=== PATIENT | male | born 1930 | race Caucasian/White ===

== ENCOUNTER 2018-03-24 11:21 | Inpatient (IN) ==
[2018-03-24] MEDS ORDERED: 0.9 % SODIUM CHLORIDE 1,000 ML IV ONE ×2 (11:36→13:19)
--- NOTE | 2018-03-24 11:54 | Emergency Department Note ---
Fever HPI - General Chief Complaint: Fever Stated Complaint: elevated fever Time Seen by Provider: 03/24/18 11:31 Source: patient, family Mode of arrival: wheelchair Limitations: no limitations - History of Present Illness HPI Narrative: 88-year-old male in ED today with son present. Patient states at 9 AM he began feeling slightly ill with the shakes. At that time he was visiting his in paresthesia care. He will return home and got into bed under the covers to try to warm up and just had the chills and shaking. Patient decided to return to ED because in November at 2018 he was diagnosed with sepsis and presented with the same symptoms. Patient has no difficulty breathing, no shortness of breath , no chest pain, no changes in bowel or bladder, no other concerns other than shaking and health history. Patient has had his flu vaccination and pneumonia vaccination. MD complaint: fever Onset (ago): hour(s) (3) Context: sick contacts Associated symptoms: Reports: chills. Denies: headache, nasal congestion, sore throat, stiff neck, cough, chest pain, shortness of breath, abdominal pain, nausea, vomiting, diarrhea, dysuria, confusion Treatments prior to arrival fever: none - Related Data Home Medications Medication Instructions Recorded Confirmed Aspirin [Lite Coat Aspirin] 325 mg PO DAILY 12/04/17 03/24/18 Cyanocobalamin (Vitamin B-12) 2,500 mcg PO DAILY 12/04/17 03/24/18 [Vitamin B12] Furosemide [Lasix] 20 mg PO BID 12/04/17 03/24/18 Lovastatin [Mevacor] 20 mg PO HS 12/04/17 03/24/18 Potassium Chloride [Kdur] 20 meq PO BIDCC 12/04/17 03/24/18 Vitamin E 1,000 unit PO DAILY 12/04/17 03/24/18 Allergies Allergy/AdvReac Type Severity Reaction Status Date / Time No Known Drug Allergies Allergy Verified 12/05/17 07:34 Review of Systems All systems ED: reviewed and negative except as stated. Fever PMH - Past Medical History Medical history: Reports: hyperlipidemia, hypertension - Social History smoking status: Former smoker Alcohol use: Reports: Rarely Drug use: Reports: none Physical Exam Limitations: no limitations General appearance: alert, in no apparent distress Head: atraumatic, normocephalic, normal inspection Eye: Present: normal appearance, PERRL. Absent: conjunctival injection ENT: normal exam, normal oropharynx, mucous membranes dry, TM's normal bilaterally, normal external ear exam Neck: Present: normal inspection. Absent: tenderness, lymphadenopathy Chest: Present: normal inspection, symmetric chest wall rise. Absent: tenderness Respiratory: Present: normal lung sounds bilaterally (upper), rales/crackles ( with diminished lower bilateral). Absent: respiratory distress, wheezes Cardiovascular: Present: tachycardia. Absent: systolic murmur, diastolic murmur Abdominal: Present: soft, normal bowel sounds. Absent: distention, tenderness, guarding, rebound, rigidity Extremities: Present: normal inspection, pedal edema (1+ bilateral) Back: Present: normal inspection Neurological: Present: alert, oriented X3, normal gait Psychiatric: Present: normal affect, normal mood. Absent: depressed, agitated, anxious Skin: Present: warm, dry, intact, normal color. Absent: cyanosis, diaphoresis, erythema Course Vital Signs Temperature 102.6 F H 03/24/18 11:34 Pulse Rate 124 H 03/24/18 11:34 Respiratory Rate 18 03/24/18 11:34 Blood Pressure 156/65 03/24/18 11:34 Pulse Oximetry (%) 94 03/24/18 11:34 Temperature 101.3 F H 03/24/18 20:01 Pulse Rate 72 03/24/18 19:40 Respiratory Rate 18 03/24/18 20:01 Blood Pressure 112/61 03/24/18 20:01 Pulse Oximetry (%) 97 03/24/18 20:01 Fever - [facility] Narrative Medical decision making narrative: 650 mg Tylenol provided due to fever, 1 L fluid normal saline provided over 1 hour, 750 mg Levaquin started at the 1 hour joleen. Patient's lactic acid returns at 2.3. Chest Xray with Right lower lobe pneumonia superimposed upon pleural and parenchymal scarring. Fever reduced to 100.2 post Tylenol. Consulted with who will admit foe sepsis related to pneumonia. - Medical Records Medical records reviewed: Yes I reviewed the patient's medical records. Patient was admitted November 2017 for sepsis (Klebsiella pneumoniae bacteremia). Patient presented with same symptoms of chills with sudden onset fever. 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 - Lab Data Result diagrams: 03/24/18 12:00 03/24/18 12:00 Lab Results 03/24/18 03/24/18 03/24/18 Range/Units 12:00 12:00 12:00 WBC 8.6 (4.5-11.0) K/mcL RBC 4.10 L (4.50-5.90) M/mcL Hgb 13.3 L (13.5-16.5) g/dL Hct 39.7 L (41.0-55.0) % MCV 96.9 (80.0-100.0) fL MCH 32.5 (26.0-34.0) pg MCHC 33.6 (31.0-36.0) g/dL RDW 13.8 (11.5-14.5) % Plt Count 229 (140-440) K/mcL MPV 6.6 L (7.4-10.4) fL Gran % 89.8 H (38.0-78.0) % Lymph % (Auto) 6.8 L (15.5-49.0) % Morton % (Auto) 2.8 (1.0-12.0) % Eos % (Auto) 0.3 (0.0-7.0) % Baso % (Auto) 0.3 (0.0-2.0) % Gran # 7.7 (1.8-8.0) K/mcL Lymph # (Auto) 0.6 L (1.5-4.8) K/mcL Morton # (Auto) 0.2 (0.1-0.9) K/mcL Eos # (Auto) 0 (0.0-0.7) K/mcL Baso # (Auto) 0 (0.0-0.3) K/mcL ESR (0-15) mm/hr VBG Lactic Acid 2.3 H (0.5-2.0) mmol/L Sodium 139 (133-145) mmol/L Potassium 3.8 (3.3-5.1) mmol/L Chloride 102 (96-108) mmol/L Carbon Dioxide 23 (22-30) mmol/L Anion Gap 14.0 (8-16) BUN 15 (8-23) mg/dl Creatinine 1.1 (0.7-1.2) mg/dl GFR Calculation 60 Glucose 89 (70-105) mg/dL Calcium 8.4 L (8.6-10.4) mg/dl Total Bilirubin 0.7 (0.0-1.0) mg/dL AST 17 (0-37) U/l ALT 11 (0-40) U/l Alkaline Phosphatase 81 (39-117) U/L C-Reactive Protein (0.0-0.8) mg/dl Total Protein 7.0 (5.9-8.4) gm/dL Albumin 3.5 (3.2-5.2) gm/dL Globulin 3.5 (2.2-3.7) gm/dL Albumin/Globulin Ratio 1.0 (1.0-2.3) Ur Strep pneumoniae Ag (NEGATIVE) 03/24/18 03/24/18 03/24/18 Range/Units 12:15 14:20 14:20 WBC (4.5-11.0) K/mcL RBC (4.50-5.90) M/mcL Hgb (13.5-16.5) g/dL Hct (41.0-55.0) % MCV (80.0-100.0) fL MCH (26.0-34.0) pg MCHC (31.0-36.0) g/dL RDW (11.5-14.5) % Plt Count (140-440) K/mcL MPV (7.4-10.4) fL Gran % (38.0-78.0) % Lymph % (Auto) (15.5-49.0) % Morton % (Auto) (1.0-12.0) % Eos % (Auto) (0.0-7.0) % Baso % (Auto) (0.0-2.0) % Gran # (1.8-8.0) K/mcL Lymph # (Auto) (1.5-4.8) K/mcL Morton # (Auto) (0.1-0.9) K/mcL Eos # (Auto) (0.0-0.7) K/mcL Baso # (Auto) (0.0-0.3) K/mcL ESR 30 H (0-15) mm/hr VBG Lactic Acid (0.5-2.0) mmol/L Sodium (133-145) mmol/L Potassium (3.3-5.1) mmol/L Chloride (96-108) mmol/L Carbon Dioxide (22-30) mmol/L Anion Gap (8-16) BUN (8-23) mg/dl Creatinine (0.7-1.2) mg/dl GFR Calculation Glucose (70-105) mg/dL Calcium (8.6-10.4) mg/dl Total Bilirubin (0.0-1.0) mg/dL AST (0-37) U/l ALT (0-40) U/l Alkaline Phosphatase (39-117) U/L C-Reactive Protein 1.1 H (0.0-0.8) mg/dl Total Protein (5.9-8.4) gm/dL Albumin (3.2-5.2) gm/dL Globulin (2.2-3.7) gm/dL Albumin/Globulin Ratio (1.0-2.3) Ur Strep pneumoniae Ag Negative (NEGATIVE) - Radiology Data Radiology results reviewed: Yes I reviewed the patient's radiology results. Right lower lobe pneumonia superimposed upon pleural and parenchymal scarring. - EKG Data EKG attestation: Yes I reviewed and interpreted this EKG. [place]/QRS: RBBB Interpretation: no acute changes Disposition Pt seen by METALLURGICAL ANALYST/PA only: No (Chin) Clinical Impression: Sepsis Disposition: Xfer As Inpt ([facility]) Condition: Fair Time of Disposition: 20:40
[2018-03-24] MEDS ORDERED: ACETAMINOPHEN 325 MG TABLET PO ONE (12:16)
[2018-03-24] MEDS ORDERED: LEVOFLOXACIN 750 MG/150 ML BAG IV ONE (12:23)
[2018-03-24 12:41] LABS: Basophils # (Auto) 0 K/mcL (0.0-0.3); Basophils % (Auto) 0.3 % (0.0-2.0); Eosinophils # (Auto) 0 K/mcL (0.0-0.7); Eosinophils % (Auto) 0.3 % (0.0-7.0); Granulocytes % (Auto) 89.8 % (38.0-78.0); Lymphocytes # (Auto) 0.6 K/mcL (1.5-4.8); Lymphocytes % (Auto) 6.8 % (15.5-49.0); Mean Cell Volume 96.9 fL (80.0-100.0); Mean Corpuscular HGB Conc 33.6 g/dL (31.0-36.0); Mean Corpuscular Hemoglobin 32.5 pg (26.0-34.0); Monocytes # (Auto) 0.2 K/mcL (0.1-0.9); Monocytes % (Auto) 2.8 % (1.0-12.0); Platelet Count 229 K/mcL (140-440); Red Cell Distribution Width 13.8 % (11.5-14.5)
--- NOTE | 2018-03-24 12:45 | XRay Report ---
HISTORY: Sepsis FINDINGS: Large amount of calcified pleural plaque surrounds both lungs. This partially obscures the underlying lung parenchyma. The right diaphragm has become partially obscured since prior exam and there is increasing density at the right lung base since 12/04/17. There may be a superimposed right lower lobe pneumonia. No pleural effusion is developed. The heart size is mildly enlarged but stable. 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 IMPRESSION: Right lower lobe pneumonia superimposed upon pleural and parenchymal scarring. Interpreted and Authenticated by: Anton Belle 03/24/18
[2018-03-24 12:53] LABS: ALT/SGPT 11 U/l (0-40); Albumin 3.5 gm/dL (3.2-5.2); Alkaline Phosphatase 81 U/L (39-117); Blood Urea Nitrogen 15 mg/dl (8-23)
[2018-03-24] MEDS ORDERED: 0.9 % SODIUM CHLORIDE 1,000 ML IV SCH (14:59)
[2018-03-24] MEDS ORDERED: ACETAMINOPHEN 1,000 MG/100 ML BOTTLE IV PRN (14:59)
[2018-03-24] MEDS ORDERED: CEFEPIME 2 GM in DEXTROSE 5% IN WATER 50 ML IV SCH (14:59)
[2018-03-24] MEDS ORDERED: POTASSIUM CHLORIDE 20 MEQ PACKET PO PRN (14:59)
[2018-03-24] MEDS ORDERED: MAGNESIUM SULFATE 2 GM/50 ML BAG IV PRN (14:59)
[2018-03-24] MEDS ORDERED: ONDANSETRON 4 MG/2 ML VIAL IV PRN (14:59)
--- NOTE | 2018-03-24 15:23 | Internal Med History&Physical ---
Medical - H&P: [facility] Patient information: Note initiated : 03/24/18 at 3:12 pm Service Date, if different from initiated Date: [] Patient: Lan Duncan a 88 y/o M admitted on 03/24/18 for Elevated Fever. Chief Complaint: [] Chief complaint: Events shaking chills History of present illness: Mr. Duncan is a 88 year old M with known history of pulmonary asbestosis who presents today with shaking chills fever since last night. Patient was recently hospitalized 4 months ago with sepsis and pneumonia from which he recovered fairly well. He has been fairly independent at baseline taking care of his and was able to perform activities of daily living including driving. He is also been taking care of his who was recently admitted to halfway home after hospitalization last week. Patient started experiencing relentless Reiger's along with fever chills and sweats starting last night. He had associated extreme exhaustion fatigue and malaise. He woke up this morning with system symptoms. He endorses to sick contact while being in the hospital caring for his . He denies changes in medication. Denies headache photophobia myalgia chest pain or shortness of breath. Denies diarrhea dysuria. Denies rash or joint swelling. Initial workup in the ER was significant for right lower lobe pneumonia along with fever of 102.6. Cultures were obtained. Patient was started on antibiotic coverage. Hospitalist service was consulted. At the time of evaluation patient is accompanied with 2 sons and a daughter. He is able to answer most of the questions. His hemodynamics have since stabilized and currently heart rate at 90 with blood pressure of 100. He endorses to history as above. Denies immunosuppression/recent steroid use. Denies recent travel Review of systems A 10 point review of system was performed and is negative except one discussed above Medical - H&P: PMH Medical history: hyperlipidemia hypertension Pertinent family history: Unremarkable Social history: Former smoker but quit Used to chew in the past but quit No alcoholism 7 kids Lives with his Medical - H&P: Meds Home Medications Medication Instructions Recorded Confirmed Type Aspirin [Lite Coat Aspirin] 325 mg PO DAILY 12/04/17 03/24/18 History Cyanocobalamin (Vitamin B-12) 2,500 mcg PO DAILY 12/04/17 03/24/18 History [Vitamin B12] Furosemide [Lasix] 20 mg PO BID 12/04/17 03/24/18 History Lovastatin [Mevacor] 20 mg PO HS 12/04/17 03/24/18 History Potassium Chloride [Kdur] 20 meq PO BIDCC 12/04/17 03/24/18 History Vitamin E 1,000 unit PO DAILY 12/04/17 03/24/18 History Allergies Allergy/AdvReac Type Severity Reaction Status Date / Time No Known Drug Allergies Allergy Verified 12/05/17 07:34 Medical - H&P: Exam - Constitutional Vitals: Temp Pulse Resp BP Pulse Ox 100.0 F H 98 H 27 H 145/90 93 03/24/18 14:42 03/24/18 12:53 03/24/18 12:53 03/24/18 11:46 03/24/18 12:53 General appearance: no acute distress Exam: Alert and oriented head normocephalic Neck no lymphadenopathy Oral cavity dry No ear nose discharge S1-S2 regular rhythm no murmur Diminished breath sounds right base with crackles Abdomen soft nontender Lower extremity no cyanosis clubbing no joint swelling Skin no suspicious lesion Psych alert cooperative neuro nonfocal Medical - H&P: Reslt - Labs CBC & Chem 7: 03/24/18 12:00 03/24/18 12:00 Labs: Short CBC 03/24/18 Range/Units 12:00 WBC 8.6 (4.5-11.0) K/mcL Hgb 13.3 L (13.5-16.5) g/dL Hct 39.7 L (41.0-55.0) % Plt Count 229 (140-440) K/mcL BMP 03/24/18 12:00 Sodium 139 Potassium 3.8 Chloride 102 Carbon Dioxide 23 BUN 15 Creatinine 1.1 Glucose 89 Calcium 8.4 L Liver Function 03/24/18 Range/Units 12:00 Total Bilirubin 0.7 (0.0-1.0) mg/dL AST 17 (0-37) U/l ALT 11 (0-40) U/l Alkaline Phosphatase 81 (39-117) U/L Albumin 3.5 (3.2-5.2) gm/dL Medical - H&P: A/P (1) Right lower lobe pneumonia Current visit: Yes Status: Acute * Right lower lobe pneumonia likely nosocomial-PSI over 100. Continue antibiotic coverage. Recent nosocomial exposure, extend antibiotic coverage with Zosyn/vancomycin and de-escalate based on culture results. * Sepsis secondary to above continue antibiotic coverage * Dyspnea secondary to above continue bronchodilators/inhaled steroids * History of hyperlipidemia continue statin * DVT prophylaxis on heparin * Full code Plan * Antibiotic coverage * PT OT eval * Sepsis management guidelines * Inpatient admit in light of PSA over 100
[2018-03-24] MEDS ORDERED: VANCOMYCIN PER PHARMACY IV SCH (15:53)
[2018-03-24] MEDS: IPRATROPIUM/ALBUTEROL 3 ML AMPUL.NEB NEB SCH ×3 (15:58→22:50)
[2018-03-24] MEDS ORDERED: cefTRIAXone 2 GM in DEXTROSE 5% IN WATER 50 ML IV SCH (16:00)
[2018-03-24 16:05] LABS: C-Reactive Protein 1.1 mg/dl (0.0-0.8)
[2018-03-24] MEDS: PIPERACILLIN SODIUM/TAZOBACTAM 3.375 GM in DEXTROSE 5% IN WATER 50 ML IV SCH ×3 (16:42→23:28)
[2018-03-24] MEDS: 0.9 % SODIUM CHLORIDE 10 ML SYRINGE IV SCH ×2 (16:43→20:32)
[2018-03-24] MEDS ORDERED: VANCOMYCIN 2,000 MG in 0.9 % SODIUM CHLORIDE 500 ML IV ONE (17:00)
--- NOTE | 2018-03-24 18:29 | Emergency Department Note ---
ED Note Addendum Note Addendum: Agree with diagnosis and treatment and the need to admit
[2018-03-24] MEDS: ACETAMINOPHEN 325 MG TABLET PO PRN (18:55)
[2018-03-24] MEDS: BUDESONIDE 0.5 MG/2 ML AMPUL.NEB NEB SCH (19:40)
[2018-03-24] MEDS ORDERED: traZODone HCL 50 MG TABLET PO PRN (20:13)
[2018-03-24] MEDS: HEPARIN 5,000 UNIT/ML VIAL SQ SCH (20:31)
[2018-03-24] MEDS: CYANOCOBALAMIN (VITAMIN B-12) 500 MCG TABLET PO SCH (20:31)
[2018-03-24] MEDS: DOCUSATE SODIUM 100 MG CAPSULE PO SCH (20:32)
[2018-03-24] MEDS ORDERED: SENNOSIDES/DOCUSATE SODIUM 1 TAB TABLET PO SCH (21:00)
[2018-03-25] MEDS: IPRATROPIUM/ALBUTEROL 3 ML AMPUL.NEB NEB SCH ×6 (02:52→22:34)
[2018-03-25] MEDS: ACETAMINOPHEN 325 MG TABLET PO PRN (02:57)
[2018-03-25] MEDS: PIPERACILLIN SODIUM/TAZOBACTAM 3.375 GM in DEXTROSE 5% IN WATER 50 ML IV SCH ×4 (05:19→23:33)
[2018-03-25 06:03] LABS: ALT/SGPT 9 U/l (0-40); Albumin 2.9 gm/dL (3.2-5.2); Alkaline Phosphatase 57 U/L (39-117); Bilirubin,Direct < 0.2 mg/dL (0.0-0.3); Blood Urea Nitrogen 15 mg/dl (8-23); Gamma Glutamyl Transpeptidase 9 U/L (8-61); Uric Acid 4.6 mg/dL (2.5-8.0)
[2018-03-25 06:27] LABS: Mean Cell Volume 97.9 fL (80.0-100.0); Mean Corpuscular HGB Conc 33.5 g/dL (31.0-36.0); Mean Corpuscular Hemoglobin 32.8 pg (26.0-34.0); Platelet Count 194 K/mcL (140-440); RBC 3.57 M/mcL (4.50-5.90); Red Cell Distribution Width 14.2 % (11.5-14.5)
[2018-03-25] MEDS: 0.9 % SODIUM CHLORIDE 10 ML SYRINGE IV SCH ×3 (07:30→20:32)
[2018-03-25] MEDS: BUDESONIDE 0.5 MG/2 ML AMPUL.NEB NEB SCH ×2 (08:11→18:36)
[2018-03-25 08:24] LABS: Band Neutrophils % 3 % (0-10); Eosinophils % (Manual) 1 % (0-7); Lymphocytes % 16 % (15-49); Monocytes % (Manual) 4 % (1-12); Platelet Estimate NORMAL (NORMAL); RBC Morphology NORMAL (NORMAL); Segmented Neutrophils % 76 % (38-78)
[2018-03-25] MEDS: HEPARIN 5,000 UNIT/ML VIAL SQ SCH ×2 (08:29→20:31)
[2018-03-25] MEDS: CYANOCOBALAMIN (VITAMIN B-12) 500 MCG TABLET PO SCH ×2 (08:30→20:31)
[2018-03-25] MEDS: DOCUSATE SODIUM 100 MG CAPSULE PO SCH ×2 (08:30→20:31)
[2018-03-25] MEDS ORDERED: MULTIVIT,THER IRON,CA,FA & MIN 1 TABLET PO SCH (09:00)
[2018-03-25] MEDS ORDERED: FOLIC ACID 1 MG TABLET PO SCH (09:00)
[2018-03-25] MEDS ORDERED: VANCOMYCIN 1,500 MG in 0.9 % SODIUM CHLORIDE 500 ML IV SCH (10:00)
--- NOTE | 2018-03-25 10:10 | Internal Med Progress Note ---
Medical - PN: Subj Patient information: Note initiated : 03/25/18 at 10:08 am Service Date, if different from initiated Date: [] Patient: Lan Duncan 88 y/o M admitted on 03/24/18 for Elevated Fever. Chief Complaint: [] Interval history: Mr. Duncan is a 88 year old M with known history of pulmonary asbestosis who presents today with shaking chills fever since last night. Patient was recently hospitalized 4 months ago with sepsis and pneumonia from which he recovered fairly well. He has been fairly independent at baseline taking care of his and was able to perform activities of daily living including driving. He is also been taking care of his who was recently admitted to long term home after hospitalization last week. Patient started experiencing relentless Reiger's along with fever chills and sweats starting last night. He had associated extreme exhaustion fatigue and malaise. He woke up this morning with system symptoms. He endorses to sick contact while being in the hospital caring for his . He denies changes in medication. Denies headache photophobia myalgia chest pain or shortness of breath. Denies diarrhea dysuria. Denies rash or joint swelling. Initial workup in the ER was significant for right lower lobe pneumonia along with fever of 102.6. Cultures were obtained. Patient was started on antibiotic coverage. Hospitalist service was consulted. At the time of evaluation patient is accompanied with 2 sons and a daughter. He is able to answer most of the questions. His hemodynamics have since stabilized and currently heart rate at 90 with blood pressure of 100. 12/8-patient feeling remarkably better. Hemodynamics stabilized. Transferring to medical floor. Pro-calcitonin 2.39. Continuing antibiotic coverage. Currently on room air. T-max 102.6. Cultures negative so far. Continue antibiotic coverage/physical therapy. - Constitutional Vitals: Vital Signs Temp Pulse Resp BP Pulse Ox 98.7 F 65 20 130/67 96 03/25/18 08:01 03/25/18 08:21 03/25/18 08:21 03/25/18 08:01 03/25/18 08:12 Period Temp Pulse Resp BP Sys/[place] Pulse Ox Last 24 Hr 98.7 F-102.6 F 60-124 16-34 96-156/49-94 91-99 Intake and Output 03/24/18 03/25/1818 21:59 05:59 13:59 Intake Total 2440 / 2440 390 / 390 240 / 240 Output Total 400 / 400 500 / 500 350 / 350 Balance 2039 / 0 -110 / -110 -110 / -110 Weight 224 lb Intake & Output: Intake & Output 03/24/18 03/25/18 03/25/18 21:59 05:59 13:59 Intake Total 2440 / 2440 390 / 390 240 / 240 Output Total 400 / 400 500 / 500 350 / 350 Balance 2039 / 0 -110 / -110 -110 / -110 Weight 224 lb Intake: IV 1600 / 1600 50 / 50 Zosyn 3.375 gm In Dextrose 5% 100 / 100 50 / 50 in Water 50 ml @ 100 mls/hr IV Q6H [facility] Rx#:[id number] Oral 840 / 840 340 / 340 240 / 240 Output: Void Amount 400 / 400 500 / 500 350 / 350 Other: Meal Dinner Breakfast Percent of Meal Consumed 75% 50% Urine Appearance Clear Clear Urine Color Dark Yellow Bright Yellow Stool Size Small Small Stool Color Brown Brown Stool Consistency Formed Formed # Voids 1 # Bowel Movements 1 1 General appearance: cooperative, no acute distress Exam: Alert oriented nonlabored breathing No telemetry events Nondistended abdomen No anxiety Medical - PN: Obj Da - Labs CBC & Chem 7: 03/25/18 03:43 03/25/18 03:43 Labs: Abnormal Lab Results 03/25/18 03/25/18 03/24/18 03:43 03:43 14:20 RBC 3.57 L Hgb 11.7 L Hct 34.9 L MPV 7.0 L Gran % Lymph % (Auto) Lymph # (Auto) ESR VBG Lactic Acid Carbon Dioxide 19 L Creatinine 1.3 H Calcium 7.9 L Total Bilirubin 1.1 H C-Reactive Protein 1.1 H Albumin 2.9 L 03/24/18 03/24/18 03/24/18 14:20 12:00 12:00 RBC Hgb Hct MPV Gran % Lymph % (Auto) Lymph # (Auto) ESR 30 H VBG Lactic Acid 2.3 H Carbon Dioxide Creatinine Calcium 8.4 L Total Bilirubin C-Reactive Protein Albumin 03/24/18 12:00 RBC 4.10 L Hgb 13.3 L Hct 39.7 L MPV 6.6 L Gran % 89.8 H Lymph % (Auto) 6.8 L Lymph # (Auto) 0.6 L ESR VBG Lactic Acid Carbon Dioxide Creatinine Calcium Total Bilirubin C-Reactive Protein Albumin Meds: Medications Acetaminophen (Tylenol) 650 mg PO Q4-6HP PRN PRN Reason: PAIN/FEVER > 101 Last Admin: 03/25/18 02:57 Dose: 650 mg Albuterol/Ipratropium (Duoneb) 3 ml NEB Q4HRT [facility] Last Admin: 03/25/18 08:11 Dose: 3 ml Budesonide (Pulmicort) 0.5 mg NEB Q12 [facility] Last Admin: 03/25/18 08:11 Dose: 0.5 mg Cyanocobalamin (Vitamin B-12) 1,000 mcg PO BID [facility] Stop: 03/29/18 09:01 Last Admin: 03/25/18 08:30 Dose: 1,000 mcg Docusate Sodium (Colace) 100 mg PO BID [facility] Last Admin: 03/25/18 08:30 Dose: 100 mg Folic Acid (Folic Acid) 1 mg PO DAILY [facility] Last Admin: 03/25/18 08:29 Dose: 1 mg Heparin Sodium (Porcine) (Heparin) 5,000 unit SQ Q12 [facility] Last Admin: 03/25/18 08:29 Dose: 5,000 unit Magnesium Sulfate (Magnesium Sulfate) 2 gm in 50 mls @ 50 mls/hr IV UD PRN PRN Reason: MG = or < 1.7 Sodium Chloride (Sodium Chloride 0.9%) 1,000 mls @ 50 mls/hr IV .Q20H [facility] Stop: 03/27/18 02:58 Last Admin: 03/24/18 16:44 Dose: 50 mls/hr Acetaminophen (Ofirmev) 1,000 mg in 100 mls @ 200 mls/hr IV Q6HP PRN PRN Reason: PAIN/FEVER > 101 Piperacillin Sod/Tazobactam (Sod 3.375 gm/ Dextrose) 50 mls @ 100 mls/hr IV Q6H [facility] Last Admin: 03/25/18 05:19 Dose: 100 mls/hr Vancomycin HCl 1,500 mg/ (Sodium Chloride) 500 mls @ 333.3 mls/hr IV Q24H [facility] Iron Carb/Multivit/Insulation Estimator/Folic Acid (Multivitamin W/Minerals) 1 tab PO DAILY [facility] Last Admin: 03/25/18 08:30 Dose: 1 tab Ondansetron HCl (Zofran) 4 mg IV Q4-6HP PRN PRN Reason: Nausea And Vomiting Potassium Chloride (Klor-Con) 40 meq PO DAILYP PRN PRN Reason: K+ < 3.5 Senna/Docusate Sodium (Senna Plus Tablet) 1 tab PO HS [facility] Last Admin: 03/24/18 20:32 Dose: 1 tab Sodium Chloride (Saline Flush) 10 ml IV Q8 [facility] Last Admin: 03/25/18 07:30 Dose: 10 ml Trazodone HCl (Desyrel) 50 mg PO HSP PRN PRN Reason: Insomnia Last Admin: 03/24/18 20:32 Dose: 50 mg Vancomycin HCl (Vancomycin Per Pharmacy) 1 order IV UD [facility] Medical - PN: A/P - Time Spent With Patient Total time spent is greater than 50% in coordination of care (as documented) at patient's floor/unit and/or counseling patient: 25 - 35 minutes (1) Right lower lobe pneumonia Status: Acute Assessment and plan: * Right lower lobe pneumonia likely nosocomial-PSI over 100. Clinical improvement noted on broad antibiotic coverage. Cultures negative so far. * Sepsis secondary to above -clinically improved with management as above. Transfer to medical floor. * Dyspnea secondary to above continue bronchodilators/inhaled steroids. Much improved. Now on room air * History of hyperlipidemia continue statin * DVT prophylaxis on heparin * Full code Plan * De-escalate antibiotics once culture sensitivities available * PT OT * Transfer to medical floor * Prior medical condition management as above Current Visit: Yes Medical - PN: Qual - VTE Deep Vein Thrombosis/Pulmonary Embolism Present on Admission: No
[2018-03-25] MEDS ORDERED: VANCOMYCIN PER PHARMACY IV SCH (10:44)
[2018-03-25] MEDS ORDERED: ONDANSETRON 4 MG/2 ML VIAL IV PRN (10:44)
[2018-03-25] MEDS ORDERED: POTASSIUM CHLORIDE 20 MEQ PACKET PO PRN (10:44)
[2018-03-25] MEDS ORDERED: MAGNESIUM SULFATE 2 GM/50 ML BAG IV PRN (10:44)
[2018-03-25] MEDS ORDERED: 0.9 % SODIUM CHLORIDE 1,000 ML IV SCH (10:44)
[2018-03-25] MEDS ORDERED: ACETAMINOPHEN 325 MG TABLET PO PRN (10:44)
[2018-03-25] MEDS ORDERED: ACETAMINOPHEN 1,000 MG/100 ML BOTTLE IV PRN (10:44)
[2018-03-25] MEDS: SENNOSIDES/DOCUSATE SODIUM 1 TAB TABLET PO SCH (20:31)
[2018-03-25] MEDS ORDERED: traZODone HCL 50 MG TABLET PO PRN (21:00)
[2018-03-26] MEDS: IPRATROPIUM/ALBUTEROL 3 ML AMPUL.NEB NEB SCH ×6 (02:48→22:24)
[2018-03-26 05:25] LABS: Mean Cell Volume 97.4 fL (80.0-100.0); Mean Corpuscular HGB Conc 33.8 g/dL (31.0-36.0); Mean Corpuscular Hemoglobin 32.9 pg (26.0-34.0); Platelet Count 193 K/mcL (140-440); Red Cell Distribution Width 14.1 % (11.5-14.5)
[2018-03-26] MEDS: PIPERACILLIN SODIUM/TAZOBACTAM 3.375 GM in DEXTROSE 5% IN WATER 50 ML IV SCH ×4 (05:50→23:50)
[2018-03-26] MEDS: 0.9 % SODIUM CHLORIDE 10 ML SYRINGE IV SCH ×3 (05:53→20:10)
[2018-03-26 05:54] LABS: ALT/SGPT 10 U/l (0-40); Albumin/Globulin Ratio 1.1 (1.0-2.3); Alkaline Phosphatase 54 U/L (39-117); Bilirubin,Direct < 0.2 mg/dL (0.0-0.3); Blood Urea Nitrogen 10 mg/dl (8-23); Gamma Glutamyl Transpeptidase 11 U/L (8-61); Uric Acid 3.5 mg/dL (2.5-8.0)
[2018-03-26 06:30] LABS: Band Neutrophils % 4 % (0-10); Eosinophils % (Manual) 3 % (0-7); Lymphocytes % 22 % (15-49); Monocytes % (Manual) 7 % (1-12); Platelet Estimate NORMAL (NORMAL); RBC Morphology NORMAL (NORMAL); Segmented Neutrophils % 64 % (38-78)
[2018-03-26] MEDS: BUDESONIDE 0.5 MG/2 ML AMPUL.NEB NEB SCH ×2 (08:17→18:30)
[2018-03-26] MEDS: HEPARIN 5,000 UNIT/ML VIAL SQ SCH ×2 (08:29→20:10)
[2018-03-26] MEDS: MULTIVIT,THER IRON,CA,FA & MIN 1 TABLET PO SCH (08:29)
[2018-03-26] MEDS: FOLIC ACID 1 MG TABLET PO SCH (08:29)
[2018-03-26] MEDS: DOCUSATE SODIUM 100 MG CAPSULE PO SCH ×2 (08:29→20:11)
[2018-03-26] MEDS: CYANOCOBALAMIN (VITAMIN B-12) 500 MCG TABLET PO SCH ×2 (08:29→20:10)
--- NOTE | 2018-03-26 09:32 | XRay Report ---
HISTORY: Follow-up right lower lobe pneumonia FINDINGS: The lungs are difficult to evaluate due to a large amount superimposed posterior densely calcified pleural plaque bilaterally. The right lower lobe infiltrates seen on 03/24/18 is still present and is probably not changed. There may be pneumonia developing throughout the left lung. The left lung appears more opacified today. There has been little change in the right upper lobe. The heart appears mildly enlarged but is magnified by portable technique. IMPRESSION: Bilateral pneumonia. This may be becoming worse in both left upper and left lower lobes. Right lower lobe remain stable Interpreted and Authenticated by: Anton Belle 03/26/18
[2018-03-26] MEDS ORDERED: VANCOMYCIN 1,500 MG in 0.9 % SODIUM CHLORIDE 500 ML IV SCH (10:00)
--- NOTE | 2018-03-26 10:11 | Internal Med Progress Note ---
Medical - PN: Subj Patient information: Note initiated : 03/26/18 at 10:09 am Service Date, if different from initiated Date: [] Patient: Lan Duncan a 88 y/o M admitted on 03/24/18 for Elevated Fever. Chief Complaint: [] Interval history: Mr. Duncan is a 88 year old M with known history of pulmonary asbestosis who presents today with shaking chills fever since last night. Patient was recently hospitalized 4 months ago with sepsis and pneumonia from which he recovered fairly well. He has been fairly independent at baseline taking care of his and was able to perform activities of daily living including driving. He is also been taking care of his who was recently admitted to alf home after hospitalization last week. Patient started experiencing relentless Reiger's along with fever chills and sweats starting last night. He had associated extreme exhaustion fatigue and malaise. He woke up this morning with system symptoms. He endorses to sick contact while being in the hospital caring for his . He denies changes in medication. Denies headache photophobia myalgia chest pain or shortness of breath. Denies diarrhea dysuria. Denies rash or joint swelling. Initial workup in the ER was significant for right lower lobe pneumonia along with fever of 102.6. Cultures were obtained. Patient was started on antibiotic coverage. Hospitalist service was consulted. At the time of evaluation patient is accompanied with 2 sons and a daughter. He is able to answer most of the questions. His hemodynamics have since stabilized and currently heart rate at 90 with blood pressure of 100. 03/25-patient feeling remarkably better. Hemodynamics stabilized. Transferring to medical floor. Pro-calcitonin 2.39. Continuing antibiotic coverage. Currently on room air. T-max 102.6. Cultures negative so far. Continue antibiotic coverage/physical therapy. 03/26 Patient seen and examined, no acute overnight events. Feeling much better. He is now on a medical floor. He is able to get out of bed and feels back to baseline. Repeat chest x-ray however done today shows worsening of pneumonia. Some new infiltrates on the right and the left side. Clinically patient does show significant improvement is afebrile however has worsening x-ray. Will monitor him for 1 more day. Cultures have been negative so far. Continue IV antibiotics anticipate discharge tomorrow if remains afebrile and is clinically stable Pertinent ROS: Denies headache, dizziness Denies chest pain, palpitations Denies cough or shortness of breath (much improved) Denies abdominal pain, nausea or vomiting. - Constitutional Vitals: Vital Signs Temp Pulse Resp BP Pulse Ox 98.4 F 76 18 135/76 97 03/26/18 08:00 03/26/18 08:24 03/26/18 08:24 03/26/18 08:00 03/26/18 08:18 Period Temp Pulse Resp BP Sys/[place] Pulse Ox Last 24 Hr 98 F-98.9 F 68-90 18-20 106-151/55-90 92-97 Intake and Output 03/25/18 03/26/18 03/26/18 21:59 05:59 13:59 Intake Total 50 / 50 50 / 50 50 / 50 Output Total 425 / 425 800 / 800 325 / 325 Balance -375 / -375 -750 / -750 -275 / -275 Weight 228 lb 8 oz Intake & Output: Intake & Output 03/25/18 03/26/18 03/26/18 21:59 05:59 13:59 Intake Total 50 / 50 50 / 50 50 / 50 Output Total 425 / 425 800 / 800 325 / 325 Balance -375 / -375 -750 / -750 -275 / -275 Weight 228 lb 8 oz Intake: IV 50 / 50 50 / 50 50 / 50 Zosyn 3.375 gm In Dextrose 5% 50 / 50 50 / 50 50 / 50 in Water 50 ml @ 100 mls/hr IV Q6H [facility] Rx#:[id number] Output: Void Amount 425 / 425 800 / 800 325 / 325 Other: Meal Lunch Breakfast Percent of Meal Consumed 100% 100% Feeding Ability Independent Independent Urine Appearance Clear Urine Color Bright Yellow Stool Size Smear Stool Color Brown Stool Consistency Loose # Voids 1 # Bowel Movements 2 Exam: Constitutional; Afebrile, cooperative, alert, not in distress. Respiratory system: Air Entry equal on both sides, matthieu conducted breath sounds. CVS- Rate rhythm regular, S1,S2 heard, no gallop, no rub. Abdomen- Soft nontender abdomen, no organomegaly, no tenderness, no guarding or rigidity, FUR DRESSER- AOOx3, moving all extremities, no gross focal deficit noted. Medical - PN: Obj Da - Labs CBC & Chem 7: 03/26/18 04:26 03/26/18 04:26 Labs: Abnormal Lab Results 03/26/18 03/26/18 03/25/18 04:26 04:26 03:43 RBC 3.50 L Hgb 11.5 L Hct 34.1 L MPV 6.9 L Gran % Lymph % (Auto) Lymph # (Auto) ESR VBG Lactic Acid Potassium 3.2 L Carbon Dioxide 19 L Creatinine 1.3 H Glucose 153 H Calcium 7.9 L 7.9 L Total Bilirubin 1.1 H C-Reactive Protein Total Protein 5.7 L Albumin 3.0 L 2.9 L 03/25/18 03/24/18 03/24/18 03:43 14:20 14:20 RBC 3.57 L Hgb 11.7 L Hct 34.9 L MPV 7.0 L Gran % Lymph % (Auto) Lymph # (Auto) ESR 30 H VBG Lactic Acid Potassium Carbon Dioxide Creatinine Glucose Calcium Total Bilirubin C-Reactive Protein 1.1 H Total Protein Albumin 03/24/18 03/24/18 03/24/18 12:00 12:00 12:00 RBC 4.10 L Hgb 13.3 L Hct 39.7 L MPV 6.6 L Gran % 89.8 H Lymph % (Auto) 6.8 L Lymph # (Auto) 0.6 L ESR VBG Lactic Acid 2.3 H Potassium Carbon Dioxide Creatinine Glucose Calcium 8.4 L Total Bilirubin C-Reactive Protein Total Protein Albumin Meds: Medications Acetaminophen (Tylenol) 650 mg PO Q4-6HP PRN PRN Reason: PAIN/FEVER > 101 Albuterol/Ipratropium (Duoneb) 3 ml NEB Q4HRT [facility] Last Admin: 03/26/18 08:17 Dose: 3 ml Budesonide (Pulmicort) 0.5 mg NEB Q12 [facility] Last Admin: 03/26/18 08:17 Dose: 0.5 mg Cyanocobalamin (Vitamin B-12) 1,000 mcg PO BID [facility] Stop: 03/29/18 09:01 Last Admin: 03/26/18 08:29 Dose: 1,000 mcg Docusate Sodium (Colace) 100 mg PO BID [facility] Last Admin: 03/26/18 08:29 Dose: 100 mg Folic Acid (Folic Acid) 1 mg PO DAILY [facility] Last Admin: 03/26/18 08:29 Dose: 1 mg Heparin Sodium (Porcine) (Heparin) 5,000 unit SQ Q12 [facility] Last Admin: 03/26/18 08:29 Dose: 5,000 unit Magnesium Sulfate (Magnesium Sulfate) 2 gm in 50 mls @ 50 mls/hr IV UD PRN PRN Reason: MG = or < 1.7 Acetaminophen (Ofirmev) 1,000 mg in 100 mls @ 200 mls/hr IV Q6HP PRN PRN Reason: PAIN/FEVER > 101 Piperacillin Sod/Tazobactam (Sod 3.375 gm/ Dextrose) 50 mls @ 100 mls/hr IV Q6H [facility] Last Infusion: 03/26/18 06:41 Dose: Infused Vancomycin HCl 1,500 mg/ (Sodium Chloride) 500 mls @ 333.3 mls/hr IV Q24H [facility] Iron Carb/Multivit/[place]/Folic Acid (Multivitamin W/Minerals) 1 tab PO DAILY [facility] Last Admin: 03/26/18 08:29 Dose: 1 tab Ondansetron HCl (Zofran) 4 mg IV Q4-6HP PRN PRN Reason: Nausea And Vomiting Potassium Chloride (Klor-Con) 40 meq PO DAILYP PRN PRN Reason: K+ < 3.5 Senna/Docusate Sodium (Senna Plus Tablet) 1 tab PO HS [facility] Last Admin: 03/25/18 20:31 Dose: 1 tab Sodium Chloride (Saline Flush) 10 ml IV Q8 [facility] Last Admin: 03/26/18 05:53 Dose: 10 ml Trazodone HCl (Desyrel) 50 mg PO HSP PRN PRN Reason: Insomnia Last Admin: 03/25/18 20:30 Dose: 50 mg Vancomycin HCl (Vancomycin Per Pharmacy) 1 order IV [facility] Medical - PN: A/P - Time Spent With Patient Total time spent is greater than 50% in coordination of care (as documented) at patient's floor/unit and/or counseling patient: - Narrative A/P Narrative: A/P Right Lower lob Bacterial PNA/ HCAP- Clinically much better, but X ray shows worsening, microbiology neg, monitor for 1 more day, continue IV abx, check procalcitonin in AM Sepsis- REsolved Shortness of breath- much improved on room air HLD- on statin DVT- hep sq Anticipate d/c home in AM if remains stable, Medical - PN: Qual - VTE Deep Vein Thrombosis/Pulmonary Embolism Present on Admission: No
[2018-03-26] MEDS: VANCOMYCIN 1,500 MG in 0.9 % SODIUM CHLORIDE 500 ML IV SCH ×2 (11:18→20:10)
[2018-03-26] MEDS: SENNOSIDES/DOCUSATE SODIUM 1 TAB TABLET PO SCH (20:10)
[2018-03-27] MEDS: IPRATROPIUM/ALBUTEROL 3 ML AMPUL.NEB NEB SCH ×3 (03:26→11:10)
[2018-03-27] MEDS: 0.9 % SODIUM CHLORIDE 10 ML SYRINGE IV SCH (05:54)
[2018-03-27] MEDS: PIPERACILLIN SODIUM/TAZOBACTAM 3.375 GM in DEXTROSE 5% IN WATER 50 ML IV SCH (05:55)
[2018-03-27 05:58] LABS: Mean Cell Volume 98.1 fL (80.0-100.0); Mean Corpuscular HGB Conc 33.4 g/dL (31.0-36.0); Mean Corpuscular Hemoglobin 32.8 pg (26.0-34.0); Platelet Count 210 K/mcL (140-440); RBC 3.71 M/mcL (4.50-5.90); Red Cell Distribution Width 14.1 % (11.5-14.5)
[2018-03-27 06:28] LABS: ALT/SGPT 9 U/l (0-40); Albumin 3.2 gm/dL (3.2-5.2); Albumin/Globulin Ratio 1.1 (1.0-2.3); Alkaline Phosphatase 56 U/L (39-117); Bilirubin,Direct < 0.2 mg/dL (0.0-0.3); Blood Urea Nitrogen 6 mg/dl (8-23); Gamma Glutamyl Transpeptidase 12 U/L (8-61); Uric Acid 2.3 mg/dL (2.5-8.0)
[2018-03-27] MEDS: BUDESONIDE 0.5 MG/2 ML AMPUL.NEB NEB SCH (07:21)
[2018-03-27] MEDS ORDERED: POTASSIUM CHLORIDE 20 MEQ PACKET PO ONE (07:22)
[2018-03-27 07:37] LABS: Eosinophils % (Manual) 4 % (0-7); Lymphocytes % 23 % (15-49); Monocytes % (Manual) 11 % (1-12); Platelet Estimate NORMAL (NORMAL); RBC Morphology NORMAL (NORMAL); Segmented Neutrophils % 58 % (38-78)
[2018-03-27] MEDS: CYANOCOBALAMIN (VITAMIN B-12) 500 MCG TABLET PO SCH (08:39)
[2018-03-27] MEDS: MULTIVIT,THER IRON,CA,FA & MIN 1 TABLET PO SCH (08:39)
[2018-03-27] MEDS: FOLIC ACID 1 MG TABLET PO SCH (08:39)
[2018-03-27] MEDS: HEPARIN 5,000 UNIT/ML VIAL SQ SCH (08:40)
[2018-03-27] MEDS: DOCUSATE SODIUM 100 MG CAPSULE PO SCH (08:44)
[2018-03-27] MEDS: VANCOMYCIN 1,500 MG in 0.9 % SODIUM CHLORIDE 500 ML IV SCH (09:56)
--- NOTE | 2018-03-27 10:10 | Discharge Summary ---
Medical - DS: Prov Patient information: Note initiated : 03/27/18 at 10:06 am Service Date, if different from initiated Date: [] Patient: Lan Duncan 88 y/o M admitted on 03/24/18 for Elevated Fever. Chief Complaint: [] Date of admission: 03/24/18 14:50 Discharge date: 03/27/18 Primary care physician: Loli Genao Consults: 03/24/18 Consult to Physician [CONS] Stat Comment: Consulting Provider: Pablo Simpson Reason For Exam: Physician to Consult Discharging clinician: Marilynn Chadwick Medical - DS: Meds - Discharge Medications Prescriptions: Levofloxacin 750 mg PO DAILY #4 tab Active and Home Medications: Home Medications Aspirin [Lite Coat Aspirin] 325 mg PO DAILY 12/04/17 [History Confirmed Last Taken 12/03/17] Cyanocobalamin (Vitamin B-12) [Vitamin B12] 2,500 mcg PO DAILY 12/04/17 [ History Confirmed 03/24/18 Last Taken 12/03/17] Furosemide [Lasix] 20 mg PO BID 12/04/17 [History Confirmed 03/24/18 Last Taken 12/03/17] Lovastatin [Mevacor] 20 mg PO HS 12/04/17 [History Confirmed 03/24/18 Last Taken 12/03/17] Potassium Chloride [Kdur] 20 meq PO BIDCC 12/04/17 [History Confirmed 03/24/18 Last Taken 12/03/17] Vitamin E 1,000 unit PO DAILY 12/04/17 [History Confirmed 03/24/18 Last Taken ] Medical - DS: Hosp Hospital course: Mr. Duncan is a 88 year old M with known history of pulmonary asbestosis who presented to the ER with complaints of shaking chills fever since 1 night. Patient was recently hospitalized 4 months ago with sepsis and pneumonia from which he recovered fairly well. He has been fairly independent at baseline taking care of his and was able to perform activities of daily living including driving. He is also been taking care of his who was recently admitted to [facility] after hospitalization last week. Patient started experiencing relentless Rigors along with fever chills and sweats starting last night. He had associated extreme exhaustion fatigue and malaise. He woke up this morning with system symptoms. He endorses to sick contact while being in the hospital caring for his . He denies changes in medication. Denies headache photophobia myalgia chest pain or shortness of breath. Denies diarrhea dysuria. Denies rash or joint swelling. Initial workup in the ER was significant for right lower lobe pneumonia along with fever of 102.6. Cultures were obtained. Patient was started on antibiotic coverage. Hospitalist service was consulted. At the time of evaluation patient is accompanied with 2 sons and a daughter. He is able to answer most of the questions. His hemodynamics have since stabilized and currently heart rate at 90 with blood pressure of 100. 03/25-patient feeling remarkably better. Hemodynamics stabilized. Transferring to medical floor. Pro-calcitonin 2.39. Continuing antibiotic coverage. Currently on room air. T-max 102.6. Cultures negative so far. Continue antibiotic coverage/physical therapy. 03/26 Patient seen and examined, no acute overnight events. Feeling much better. He is now on a medical floor. He is able to get out of bed and feels back to baseline. Repeat chest x-ray however done today shows worsening of pneumonia. Some new infiltrates on the right and the left side. Clinically patient does show significant improvement is afebrile however has worsening x-ray. Will monitor him for 1 more day. Cultures have been negative so far. Continue IV antibiotics anticipate discharge tomorrow if remains afebrile and is clinically stable 03/27 Patient seen examined, no acute issues, doing well, clinically stable, afebrile , procalcitonin trending down. Cultures remain negative Wanting to go home, declined home health services, his step son will pick him up as per him Will d/c with oral levofloxacin for another 4 days to complete a 7 day course Discharge diagnosis: Pneumonia - Time Spent with Patient Total time spent providing and/or coordinating discharge services: Less than 30 minutes Medical - DS: Exam - Constitutional Vitals: Vital Signs Temp Pulse Pulse Resp BP Pulse Ox 03/27/18 07:49 67 18 92 03/27/18 07:48 67 18 03/27/18 06:39 97.6 F 18 154/85 94 03/27/18 03:37 98.9 F 73 20 144/76 95 03/26/18 23:52 97.5 F 70 22 138/76 93 03/26/18 22:25 79 18 03/26/18 19:55 98.2 F 78 20 138/75 93 03/26/18 18:30 77 18 03/26/18 16:00 98.4 F 81 20 132/81 94 03/26/18 14:55 87 18 03/26/18 11:49 98.7 F 18 142/81 94 03/26/18 11:39 68 18 Intake and Output 03/26/18 03/27/18 03/27/18 21:59 05:59 13:59 Intake Total 1300 / 1300 650 / 650 Output Total 500 / 500 700 / 700 200 / 200 Balance 800 / 800 -50 / -50 -200 / -200 Intake: IV 600 / 600 550 / 550 Zosyn 3.375 gm In Dextrose 5% 100 / 100 50 / 50 in Water 50 ml @ 100 mls/hr IV Q6H [facility] Rx#:[id number] Vancomycin 1,500 mg In Sodium 500 / 500 500 / 500 Chloride 0.9% 500 ml @ 333.3 mls/hr IV Q12H [facility] Rx#: [id number] Oral 700 / 700 100 / 100 Output: Void Amount 500 / 500 700 / 700 200 / 200 Other: Meal Dinner Percent of Meal Consumed 100% Feeding Ability Independent Urine Color Bright Yellow Dark Yellow Pale Urine Odor Normal Stool Size Moderate Stool Consistency Loose # Voids 1 Weight 231 lb Additional comments: Constitutional; Afebrile, cooperative, alert, not in distress. Respiratory system: Air Entry equal on both sides, No crackles or wheezing, no rhonchi. CVS- Rate rhythm regular, S1,S2 heard, no gallop, no rub. Abdomen- Soft nontender abdomen, no organomegaly, no tenderness, no guarding or rigidity, CIRCUIT BREAKER SUPERVISOR- AOOx3, moving all extremities, no gross focal deficit noted. Medical - DS: Data Labs on day of discharge: Labs from last 24 hours 03/27/18 03/27/18 03/27/18 08:26 04:41 04:41 WBC RBC Hgb Hct MCV MCH MCHC RDW Plt Count MPV Total Counted Seg Neutrophils % Band Neutrophils % Lymphocytes % Monocytes % (Manual) Eosinophils % (Manual) Reactive Lymphocytes Platelet Estimate RBC Morphology Sodium 141 Potassium 3.4 Chloride 106 Carbon Dioxide 23 Anion Gap 12.0 BUN 6 L Creatinine 1.0 GFR Calculation 67 Glucose 108 H Uric Acid 2.3 L Calcium 8.4 L Phosphorus 2.8 Magnesium 2.0 Total Bilirubin 0.7 Direct Bilirubin < 0.2 GGT 12 AST 13 ALT 9 Alkaline Phosphatase 56 Lactate Dehydrogenase 144 Total Protein 6.2 Albumin 3.2 Globulin 3.0 Albumin/Globulin Ratio 1.1 Triglycerides 79 Procalcitonin 1.08 Vancomycin Trough 17.1 03/27/18 04:41 WBC 5.6 RBC 3.71 L Hgb 12.2 L Hct 36.4 L MCV 98.1 MCH 32.8 MCHC 33.4 RDW 14.1 Plt Count 210 MPV 7.2 L Total Counted 100 Seg Neutrophils % 58 Band Neutrophils % Not Reportable Lymphocytes % 23 Monocytes % (Manual) 11 Eosinophils % (Manual) 4 Reactive Lymphocytes 4 H Platelet Estimate Normal RBC Morphology Normal Sodium Potassium Chloride Carbon Dioxide Anion Gap BUN Creatinine GFR Calculation Glucose Uric Acid Calcium Phosphorus Magnesium Total Bilirubin Direct Bilirubin GGT AST ALT Alkaline Phosphatase Lactate Dehydrogenase Total Protein Albumin Globulin Albumin/Globulin Ratio Triglycerides Procalcitonin Vancomycin Trough Preliminary micro results at discharge 03/24/18 11:37 Blood Culture - Preliminary Blood 03/24/18 12:00 Blood Culture - Preliminary Blood 03/25/18 17:07 Sputum Culture - Preliminary Sputum - Expectorated Medical - DS: A/P - Patient/Caregiver Discharge Instructions Activity: increase activity as tolerated Diet: Regular Diet Additional Instructions: Take levofloxacin for another 4 days Follow up with PCP in 1 week Go to the ER if fever, shortness of breath, chest pain, or any other acute concern. - Follow up Plan Follow up with: Loli Genao MD [Primary Care Provider] - Disposition: Home, Self-Care Prognosis: Fair Rehab Potential: Fair I certify that the patient requires SNF services: No Overall status at discharge: patient is progressing back to baseline Medical - DS: Qual - VTE Deep Vein Thrombosis/Pulmonary Embolism Present on Admission: No
== END 2018-03-27 11:40 | disposition home or self-care (01) | DRG 871 ==
LOC: ED 11:21 → ICU 14:50 → MEDSUR 03-25 15:18
PROVIDERS: ADMIT Internal Medicine; ATTEND Internal Medicine
CPT/HCPCS: 84145; 97161; 97167; 99238; J1644; J1956; J2543; J3370; J7030; J7040; J7060; J7620; J7620-GY; J7626; J7626-GY

== ENCOUNTER 2018-07-29 08:14 | Inpatient (IN) ==
[2018-07-29] MEDS ORDERED: 0.9 % SODIUM CHLORIDE 1,000 ML IV ONE (08:41)
--- NOTE | 2018-07-29 08:56 | Emergency Department Note ---
General Adult HPI - General Chief complaint: Weakness Stated complaint: shaking Time Seen by Provider: 07/29/18 08:18 Mode of arrival: wheelchair - History of Present Illness HPI Narrative: This pleasant gentleman called his son, Niraj, at around 7:45 AM with onset a few minutes before that of feeling weak and sick. He took a medication for what he thought was constipation in his bowels called medics. He felt shaky. The last time he felt like this he had significant sepsis/pneumonia. He denies sweats or fevers. REVIEW OF SYSTEMS: No sore throat or runny nose. No chest pain or palpitations. Has had a little bit of cough and a little bit of phlegm but this is fairly common for him. It is his usual phlegm that is white-yellow. Initially said no shortness of breath but admitted to some soon after. No new wheezing. No abdominal pain or nausea but did have one episode of vomiting this morning. No dysuria, no frequency. No back pain No rashes No headaches. Has felt some weak. No weakness. No anxiety or depression. - Related Data Home Medications Medication Instructions Recorded Confirmed Aspirin [Lite Coat Aspirin] 325 mg PO DAILY 12/04/17 03/24/18 Cyanocobalamin (Vitamin B-12) 2,500 mcg PO DAILY 12/04/17 03/24/18 [Vitamin B12] Furosemide [Lasix] 20 mg PO BID 12/04/17 03/24/18 Lovastatin [Mevacor] 20 mg PO HS 12/04/17 03/24/18 Potassium Chloride [Kdur] 20 meq PO BIDCC 12/04/17 03/24/18 Vitamin E 1,000 unit PO DAILY 12/04/17 03/24/18 Previous Rx's Medication Instructions Recorded Levofloxacin 750 mg PO DAILY #4 tab 03/27/18 Allergies Allergy/AdvReac Type Severity Reaction Status Date / Time No Known Drug Allergies Allergy Verified 12/05/17 07:34 Past Medical History - Past Medical History Medical history: Reports: hyperlipidemia, hypertension. Denies: asthma, atrial fibrillation, CHF, COPD, coronary artery disease, CVA, DVT, DM, hypothyroidism, myocardial infarction, pulmonary embolus Psychiatric history: Denies: anxiety, depression Surgical history ED: Reports: cataract, other (Hydrocele drainage 1947) - Social History smoking status: Former smoker Alcohol use: Reports: None Drug use: Reports: none. Denies: marijuana Physical Exam Limitations: no limitations General appearance: alert, in distress (little panting.), other (NOT lethargic or acute; no malaise.) Head: atraumatic, normocephalic Eye: Present: normal appearance, EOMI, other (pupils equal and round. IOL in place.). Absent: scleral icterus, conjunctival injection ENT: normal oropharynx, mucous membranes dry Neck: Present: trachea midline. Absent: lymphadenopathy, thyromegaly Chest: Present: symmetric chest wall rise Respiratory: Present: normal lung sounds bilaterally, respiratory distress (some panting, tachypnea, on 2L/min.). Absent: rales/crackles, wheezes, stridor, accessory muscle use, prolonged expiratory phase Cardiovascular: Present: regular rate, tachycardia. Absent: systolic murmur, diastolic murmur Abdominal: Present: soft. Absent: distention, tenderness, guarding, rebound, rigidity, organomegaly, mass Extremities: Present: pretibial edema (trace). Absent: pedal edema, calf tenderness Back: Present: other (was hard for him to stay sitting up.) Neurological: Present: alert, oriented X3 Psychiatric: Present: normal affect, normal mood Skin: Present: warm, dry Course Vital Signs Temperature 98.9 F 07/29/18 08:16 Respiratory Rate 26 H 07/29/18 08:16 Pulse Oximetry (%) 93 07/29/18 08:16 Temperature 98.9 F 07/29/18 08:16 Respiratory Rate 26 H 07/29/18 08:16 Pulse Oximetry (%) 93 07/29/18 08:16 Medical Decision Making - [facility] Narrative Medical decision making narrative: 8:41 AM Hypoxic, tachypneic, short of breath, shaky, history of asbestosis and sepsis and pneumonia. * Multiple labs ordered including troponin, lactic acid, cultures, TSH, d-dimer, ABG. * EKG is similar to the previous EKG except ST depression after the right bundle branch block in V2 and V3. * Chest x-ray ordered as well. Because of change in shift, patient's care will be assumed by Dr. Glaser. Disposition Pt seen by THREAT ANALYST/PA only: No Disposition: Still a Patient Condition: Fair Referrals: Loli Genao MD [Primary Care Provider] -
[2018-07-29] MEDS ORDERED: cefTRIAXone 2 GM in DEXTROSE 5% IN WATER 50 ML IV ONE (09:34)
[2018-07-29] MEDS ORDERED: ACETAMINOPHEN 325 MG TABLET PO ONE (09:35)
[2018-07-29] MEDS ORDERED: AZITHROMYCIN 500 MG in DEXTROSE 5% IN WATER 250 ML IV ONE (09:36)
[2018-07-29] MEDS ORDERED: ASPIRIN 81 MG TAB.CHEW CHEWED ONE (09:56)
[2018-07-29] MEDS ORDERED: methylPREDNISolone SOD SUCC 125 MG/2 ML VIAL IV ONE (09:57)
[2018-07-29] MEDS ORDERED: IPRATROPIUM/ALBUTEROL 3 ML AMPUL.NEB NEB ONE (09:57)
[2018-07-29 09:58] LABS: Basophils # (Auto) 0 K/mcL (0.0-0.3); Basophils % (Auto) 0 % (0.0-2.0); Eosinophils # (Auto) 0 K/mcL (0.0-0.7); Eosinophils % (Auto) 0.1 % (0.0-7.0); Granulocytes % (Auto) 94.3 % (38.0-78.0); Lymphocytes # (Auto) 0.3 K/mcL (1.5-4.8); Lymphocytes % (Auto) 5.2 % (15.5-49.0); Mean Cell Volume 97.1 fL (80.0-100.0); Mean Corpuscular HGB Conc 33.6 g/dL (31.0-36.0); Monocytes # (Auto) 0 K/mcL (0.1-0.9); Monocytes % (Auto) 0.4 % (1.0-12.0); Platelet Count 234 K/mcL (140-440); Red Cell Distribution Width 13.8 % (11.5-14.5)
[2018-07-29 10:29] LABS: ALT/SGPT 188 U/l (0-40); Albumin 3.6 gm/dL (3.2-5.2); Albumin/Globulin Ratio 1.2 (1.0-2.3); Alkaline Phosphatase 122 U/L (39-117); Blood Urea Nitrogen 15 mg/dl (8-23)
[2018-07-29] MEDS ORDERED: LACTATED RINGERS 1,000 ML IV SCH (12:15)
[2018-07-29 13:11] LABS: Appearance,Urine HAZY; Bilirubin,Urine NEG (NEG); Color,Urine AMBER; Glucose,Urine (UA) 150 mg/dL (NEG); Leukocyte Esterase,Urine NEG /uL (NEG); Protein,Urine NEG (NEG); Specific Gravity,Urine 1.015 (1.000-1.035); Urine Blood NEG mg/dL (<0.03)
--- NOTE | 2018-07-29 13:27 | XRay Report ---
HISTORY: Fever, cough and possible sepsis FINDINGS: There are numerous large densely calcified pleural plaques in both sides of the chest. These obscure much of the underlying lung parenchyma creating the appearance of widespread pneumonia. Based upon prior chest CT done on 12/04/17 patient has underlying pulmonary fibrosis. The heart is mildly enlarged but magnified by portable technique and large epicardial fat pads. 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 Comparison with the prior chest x-ray done on 04/04/18 shows no significant change. IMPRESSION: No gross evidence of pneumonia. The study is limited due to large bilateral calcified pleural plaques. Interpreted and Authenticated by: Anton Belle 07/29/18
--- NOTE | 2018-07-29 13:28 | Internal Med History&Physical ---
Medical - H&P: [facility] Patient information: Note initiated : 07/29/18 at 1:25 pm Service Date, if different from initiated Date: [] Patient: Lan Duncan 88 y/o M admitted on for shaking. Chief Complaint: [] History of present illness: Mr. Duncan is a 88 year old M Who went to bed feeling fine. However this morning he was going through his morning routine suddenly felt very chilled and shaky. [place] unusually ill periods similar to when he had the sepsis and hospitalization in the recent past. He denies any increased cough or shortness of breath. Chest x-ray done in the ED difficult to interpret because of underlying asbestosis. T-max was 99.9. But he was tachypneic and tachycardic. Pro-calcitonin was elevated. Denies any abdominal pain just pain no diarrhea constipation. No headaches. No pains any particular region. His lactate was elevated in the ED. Concern for ED standpoint was pneumonia an d sepsis. He had mildly elevated bilirubin and abdominal ultrasound was done which showed no biliary dilation. Review of Systems: Pertinent positive as above. Denies headache//nausea/vomiting/chest or abdominal pain/cough/dyspnea/diarrhea. 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 Medical - H&P: Meds Home Medications Medication Instructions Recorded Confirmed Type Aspirin [Lite Coat Aspirin] 325 mg PO DAILY 12/04/17 07/29/18 History Cyanocobalamin (Vitamin B-12) 2,500 mcg PO DAILY 12/04/17 07/29/18 History [Vitamin B12] Furosemide [Lasix] 20 mg PO BID 12/04/17 07/29/18 History Lovastatin [Mevacor] 20 mg PO HS 12/04/17 07/29/18 History Potassium Chloride [Kdur] 20 meq PO BIDCC 12/04/17 07/29/18 History Vitamin E 1,000 unit PO DAILY 12/04/17 07/29/18 History Allergies Allergy/AdvReac Type Severity Reaction Status Date / Time No Known Drug Allergies Allergy Verified 12/05/17 07:34 Medical - H&P: Exam - Constitutional Vitals: Temp Pulse Resp BP Pulse Ox 99.9 F H 84 40 H 94/63 95 07/29/18 09:55 07/29/18 12:51 07/29/18 12:51 07/29/18 12:31 07/29/18 12:51 Exam: General: Alert, Awake, No acute Distress Eyes/N/T: EOMI, PEERL, DMM Head/Neck: neck supple, normocephalic atraumatic CV: RRR, No murmurs, normal s1/s2 Pulm: No rhonchi rales, few rare wheeze. Abd: soft, nontender, +BS x4 Ext: no clubbing/cyanosis/edema Neuro: Alert, no focal deficits, moves all extremities, CN 2-12 grossly intact, symmetrical strength b/l upper/lower, sensations intact b/l upper/lower Skin: warm/dry Medical - H&P: Reslt - Labs CBC & Chem 7: 07/29/18 09:17 07/29/18 09:16 Labs: Short CBC 07/29/18 Range/Units 09:17 WBC 5.9 (4.5-11.0) K/mcL Hgb 13.7 (13.5-16.5) g/dL Hct 40.8 L (41.0-55.0) % Plt Count 234 (140-440) K/mcL BMP 07/29/18 09:16 Sodium 140 Potassium 3.8 Chloride 104 Carbon Dioxide 22 BUN 15 Creatinine 1.2 Glucose 131 H Calcium 8.3 L Cardiac Enzymes 07/29/18 Range/Units 09:17 Troponin T < 0.01 (0-0.03) ng/ml Liver Function 07/29/18 Range/Units 09:16 Total Bilirubin 2.4 H (0.0-1.0) mg/dL AST 358 H (0-37) U/l ALT 188 H (0-40) U/l Alkaline Phosphatase 122 H (39-117) U/L Albumin 3.6 (3.2-5.2) gm/dL Urine 07/29/18 Range/Units 12:10 Urine Color Yolanda Urine Appearance Hazy Urine pH 5.0 (5.0-9.0) Ur Specific [place] 1.015 (1.000-1.035) Urine Protein Neg (NEG) mg/dL Urine Glucose (UA) 150 A (NEG) mg/dL Medical - H&P: A/P - Narrative A/P Narrative: A: *Sepsis: source Pulm vs other -CXR difficult to read in setting of asbestosis, UA unremarkable -No open wounds found, No GI symptoms at this time -Lactic acidosis, elevated procalcitonin *Transaminitis: 2/2 severe sepsis *Pulmonary asbestosis: *History of peripheral edema on Lasix: P: -IV fluid resuscitation, -Follow-up lactic acid -Azithro/Zosyn, -trend PCT -Prednisone -monitor electrolytes - -ppx: Lovenox No Code
--- NOTE | 2018-07-29 13:47 | Ultrasound Report ---
History: Elevated bilirubin level and fever with possible sepsis FINDINGS: The liver is mildly echogenic suggesting mild fatty infiltration. No mass is seen. Doppler shows normal blood flow in the hepatic and portal veins. There are couple cysts seen high in the left lobe on prior CT scan. These are obscured by overlying ribs and lung parenchyma on today's ultrasound. Gallbladder wall is abnormally thickened measuring up to 3.8 mm. No para cholecystic fluid collection is present. There are no stones or sludge within the gallbladder. The patient was nontender while scanning over the gallbladder. The bile ducts are normal in caliber. The common duct measures 5.5 mm. The pancreas is obscured by bowel gas. Limited views of the right kidney show no abnormality. There is no ascites or abscess. IMPRESSION: Abnormally thickened gallbladder wall which could be due to chronic cholecystitis. This is also seen with low serum albumin and chronic liver disease. Mild fatty infiltration of the liver Dr. Glaser was called with the results Interpreted and Authenticated by: Anton Belle 07/29/18
[2018-07-29] MEDS ORDERED: POTASSIUM CHLORIDE 20 MEQ TABLET PO PRN ×2 (14:48)
[2018-07-29] MEDS ORDERED: IPRATROPIUM/ALBUTEROL 3 ML AMPUL.NEB NEB PRN (14:48)
[2018-07-29] MEDS ORDERED: POLYETHYLENE GLYCOL 3350 17 GM PACKET PO PRN (14:48)
[2018-07-29] MEDS ORDERED: ACETAMINOPHEN 325 MG TABLET PO PRN (14:48)
[2018-07-29] MEDS ORDERED: PROMETHAZINE 25 MG TABLET PO PRN (14:48)
[2018-07-29] MEDS ORDERED: MAGNESIUM SULFATE 2 GM/50 ML BAG IV PRN (14:48)
[2018-07-29] MEDS ORDERED: PIPERACILLIN SODIUM/TAZOBACTAM 3.375 GM in DEXTROSE 5% IN WATER 50 ML IV SCH (14:48)
[2018-07-29] MEDS ORDERED: SENNOSIDES 1 TABLET PO PRN (14:48)
[2018-07-29] MEDS ORDERED: POTASSIUM CHLORIDE 40 MEQ in DEXTROSE 5% IN WATER 500 ML IV PRN (14:48)
[2018-07-29] MEDS ORDERED: LACTULOSE 20 GM/30 ML ORAL.SOL PO PRN (14:48)
[2018-07-29] MEDS ORDERED: ONDANSETRON 4 MG/2 ML VIAL IV PRN (14:48)
[2018-07-29] MEDS ORDERED: AZITHROMYCIN 500 MG in DEXTROSE 5% IN WATER 250 ML IV SCH (14:48)
[2018-07-29] MEDS: PIPERACILLIN SODIUM/TAZOBACTAM 3.375 GM in DEXTROSE 5% IN WATER 50 ML IV SCH ×3 (15:11→23:47)
[2018-07-29] MEDS: 0.9 % SODIUM CHLORIDE 1,000 ML IV SCH (15:11)
[2018-07-29] MEDS: 0.9 % SODIUM CHLORIDE 10 ML SYRINGE IV SCH ×2 (15:11→22:08)
[2018-07-29] MEDS ORDERED: PROPOFOL 200 MG/20 ML VIAL IV ONE (15:27)
[2018-07-29 15:28] LABS: Band Neutrophils % 11 % (0-10); Lymphocytes % 9 % (15-49); Platelet Estimate NORMAL (NORMAL); RBC Morphology NORMAL (NORMAL); Segmented Neutrophils % 80 % (38-78)
[2018-07-29] MEDS ORDERED: PROPOFOL 40 ML IV ONE (15:32)
[2018-07-29] MEDS ORDERED: PROPOFOL 0 ML IV ONE (15:32)
[2018-07-29] MEDS ORDERED: MIDAZOLAM 2 MG/2 ML VIAL ONE (15:33)
[2018-07-29] MEDS ORDERED: MIDAZOLAM 2 MG/2 ML VIAL IV ONE (16:00)
[2018-07-29] MEDS ORDERED: GLUCAGON,HUMAN RECOMBINANT 1 MG VIAL IV ONE (16:16)
[2018-07-29] MEDS ORDERED: IOPAMIDOL 150 ML BOTTLE IJ ONE (16:16)
[2018-07-29] MEDS: ENOXAPARIN 40 MG/0.4 ML SYRINGE SQ SCH (20:29)
[2018-07-29] MEDS: POTASSIUM CHLORIDE 20 MEQ TABLET PO SCH (20:30)
[2018-07-29] MEDS: DOCUSATE SODIUM 100 MG CAPSULE PO SCH (20:34)
[2018-07-29] MEDS: FAMOTIDINE 20 MG TABLET PO SCH (20:34)
[2018-07-29] MEDS ORDERED: SIMVASTATIN 10 MG TABLET PO SCH (21:00)
[2018-07-29] MEDS ORDERED: FUROSEMIDE 20 MG TABLET PO SCH (21:00)
[2018-07-30] MEDS: 0.9 % SODIUM CHLORIDE 1,000 ML IV SCH (00:56)
[2018-07-30] MEDS: 0.9 % SODIUM CHLORIDE 10 ML SYRINGE IV SCH ×3 (05:59→21:58)
[2018-07-30] MEDS: PIPERACILLIN SODIUM/TAZOBACTAM 3.375 GM in DEXTROSE 5% IN WATER 50 ML IV SCH ×5 (05:59→23:54)
[2018-07-30 06:21] LABS: Mean Cell Volume 98.6 fL (80.0-100.0); Mean Corpuscular HGB Conc 33.2 g/dL (31.0-36.0); Platelet Count 172 K/mcL (140-440); RBC 3.47 M/mcL (4.50-5.90); Red Cell Distribution Width 13.9 % (11.5-14.5)
[2018-07-30 06:35] LABS: ALT/SGPT 311 U/l (0-40); Albumin/Globulin Ratio 1.2 (1.0-2.3); Alkaline Phosphatase 99 U/L (39-117); Bilirubin,Direct 3.2 mg/dL (0.0-0.3); Blood Urea Nitrogen 18 mg/dl (8-23); Gamma Glutamyl Transpeptidase 95 U/L (8-61)
[2018-07-30 06:54] LABS: Band Neutrophils % 7 % (0-10); Lymphocytes % 13 % (15-49); Monocytes % (Manual) 1 % (1-12); Platelet Estimate NORMAL (NORMAL); RBC Morphology NORMAL (NORMAL); Segmented Neutrophils % 79 % (38-78)
--- NOTE | 2018-07-30 07:30 | Internal Med Progress Note ---
Medical - PN: Subj Patient information: Note initiated : 07/30/18 at 7:25 am Service Date, if different from initiated Date: [] Patient: Lan Duncan 88 y/o M admitted on 07/29/18 for shaking. Chief Complaint: [] Interval history: Mr. Duncan is a 88 year old M Who went to bed feeling fine. However this morning he was going through his morning routine suddenly felt very chilled and shaky. [place] unusually ill p eriods similar to when he had the sepsis and hospitalization in the recent past. He denies any increased cough or shortness of breath. Chest x-ray done in the ED difficult to interpret because of underlying asbestosis. T-max was 99.9. But he was tachypneic and tachycardic. Pro-calcitonin was elevated. Denies any abdominal pain just pain no diarrhea constipation. No headaches. No pains any particular region. His lactate was elevated in the ED. Concern for ED standpoint was pneumonia and sepsis. He had mildly elevated bilirubin and abdominal ultrasound was done which showed no biliary dilation. 07/30 Taken last night for ERCP by Dr. Doe and found to have 3 common bile duct stones, also had sphincterotomy. This morning feeling fine. Denies any complaints no abdominal pain fevers chills. Review of Systems: denies headache/fever/chills/nausea/vomiting/chest or abdominal p ain/cough/dyspnea/diarrhea. Otherwise see above. - Constitutional Vitals: Vital Signs Temp Pulse Resp BP Pulse Ox 98.0 F 55 L 24 H 104/64 95 07/30/18 07:02 07/30/18 04:00 07/30/18 07:02 07/30/18 07:02 07/30/18 07:02 Period Temp Pulse Resp BP Sys/[place] Pulse Ox Last 24 Hr 98.0 F-99.9 F 45-121 15-43 88-179/53-140 93-100 Intake and Output 07/29/18 07/30/18 07/30/18 21:59 05:59 13:59 Intake Total 1100 50 720 Output Total 950 Balance 1100 -900 720 Weight 104.78 kg Intake & Output: Intake & Output 07/29/18 07/30/18 07/30/18 21:59 05:59 13:59 Intake Total 1100 50 720 Output Total 950 Balance 1100 -900 720 Weight 104.78 kg Intake: IV 1100 50 Sodium Chloride 0.9% 1,000 ml @ 1000 150 mls/hr IV .Q6H40M [facility] Rx#: [id number] Zosyn 3.375 gm In Dextrose 5% 100 50 in Water 50 ml @ 100 mls/hr IV Q6H [facility] Rx#:[id number] Oral 0 720 Output: Void Amount 950 Other: Stool Size Moderate Stool Consistency Liquid # Voids 1 1 # Bowel Movements 1 1 Exam: General: Alert, Awake, No acute Distress Eyes/N/T: EOMI, Head/Neck: neck supple, CV: RRR, No murmurs, Pulm: No rhonchi rales, no wheezing Abd: soft, nontender, +BS x4 Ext: no clubbing/cyanosis, trace b/l LE edema Neuro: Alert, no focal deficits, moves all extremities, Skin: warm/dry Medical - PN: Obj Da - Labs CBC & Chem 7: 07/30/18 03:19 07/30/18 03:19 Labs: Abnormal Lab Results 07/30/18 07/30/18 07/30/18 03:19 03:19 03:19 WBC 17.2 H RBC 3.47 L Hgb 11.3 L Hct 34.1 L MPV Gran % Lymph % (Auto) [place] % (Auto) Lymph # (Auto) [place] # (Auto) Seg Neutrophils % 79 H Band Neutrophils % Lymphocytes % 13 L D-Dimer VBG Lactic Acid 2.6 H Glucose 119 H Calcium 7.8 L Total Bilirubin 4.2 H Direct Bilirubin 3.2 H GGT 95 H AST 300 H ALT 311 H Alkaline Phosphatase Lactate Dehydrogenase 254 H Total Protein 5.5 L Albumin 3.0 L Lipase Urine Glucose (UA) Urine Urobilinogen 07/29/18 07/29/18 07/29/18 21:31 15:36 12:10 WBC RBC Hgb Hct MPV Gran % Lymph % (Auto) [place] % (Auto) Lymph # (Auto) [place] # (Auto) Seg Neutrophils % Band Neutrophils % Lymphocytes % D-Dimer VBG Lactic Acid 3.3 H 3.3 H Glucose Calcium Total Bilirubin Direct Bilirubin GGT AST ALT Alkaline Phosphatase Lactate Dehydrogenase Total Protein Albumin Lipase Urine Glucose (UA) 150 A Urine Urobilinogen 2.0 A 0407/29/18 07/29/18 09:25 09:25 09:17 WBC RBC Hgb Hct MPV Gran % Lymph % (Auto) [place] % (Auto) Lymph # (Auto) [place] # (Auto) Seg Neutrophils % 80 H Band Neutrophils % 11 H Lymphocytes % 9 L D-Dimer 8.62 H VBG Lactic Acid Glucose Calcium Total Bilirubin Direct Bilirubin GGT AST ALT Alkaline Phosphatase Lactate Dehydrogenase Total Protein Albumin Lipase 112 H Urine Glucose (UA) Urine Urobilinogen 07/29/18 07/29/18 07/29/18 09:17 09:17 09:16 WBC RBC 4.20 L Hgb Hct 40.8 L MPV 6.8 L Gran % 94.3 H Lymph % (Auto) 5.2 L [place] % (Auto) 0.4 L Lymph # (Auto) 0.3 L [place] # (Auto) 0 L Seg Neutrophils % Band Neutrophils % Lymphocytes % D-Dimer VBG Lactic Acid 4.2 H* Glucose 131 H Calcium 8.3 L Total Bilirubin 2.4 H Direct Bilirubin GGT AST 358 H ALT 188 H Alkaline Phosphatase 122 H Lactate Dehydrogenase Total Protein Albumin Lipase Urine Glucose (UA) Urine Urobilinogen Meds: Medications Acetaminophen (Tylenol) 650 mg PO Q6HP PRN PRN Reason: PAIN/FEVER > 101 Albuterol/Ipratropium (Duoneb) 3 ml NEB Q4HP PRN PRN Reason: Shortness Of Breath Docusate Sodium (Colace) 100 mg PO BID [facility] Last Admin: 07/29/18 20:34 Dose: 100 mg Documented by: Enoxaparin Sodium (Lovenox) 40 mg SQ DAILY [facility] Last Admin: 07/29/18 20:29 Dose: 40 mg Documented by: Famotidine (Pepcid) 20 mg PO BID [facility] Last Admin: 07/29/18 20:34 Dose: 20 mg Documented by: Furosemide (Lasix) 20 mg PO BID [facility] Last Admin: 07/29/18 20:34 Dose: 20 mg Documented by: Potassium Chloride 40 meq/ (Dextrose) 520 mls @ 130 mls/hr IV UD PRN PRN Reason: Potassium < 3 Magnesium Sulfate (Magnesium Sulfate) 2 gm in 50 mls @ 50 mls/hr IV UD PRN PRN Reason: Magnesium </= 1.6 Piperacillin Sod/Tazobactam (Sod 3.375 gm/ Dextrose) 50 mls @ 100 mls/hr IV Q6H [facility]; Protocol Last Admin: 07/30/18 05:59 Dose: 100 mls/hr Documented by: Lactulose (Cephulac) 10 gm PO DAILYP PRN PRN Reason: Constipation Ondansetron HCl (Zofran) 4 mg IV Q4HP PRN PRN Reason: Nausea And Vomiting Polyethylene Glycol (Miralax) 17 gm PO DAILYP PRN PRN Reason: Constipation Potassium Chloride (Kdur) 40 meq PO UD PRN PRN Reason: Potssium is 3-3.5 Potassium Chloride (Kdur) 40 meq PO UD PRN PRN Reason: Potassium < 3 Potassium Chloride (Kdur) 20 meq PO BIDCC [facility] Last Admin: 07/29/18 20:30 Dose: 20 meq Documented by: Prednisone (Prednisone) 40 mg PO QAC [facility] Stop: 08/02/18 08:01 Promethazine HCl (Phenergan) 0 mg PO Q6HP PRN PRN Reason: Nausea And Vomiting Senna (Senokot) 2 tab PO HSP PRN PRN Reason: Constipation Simvastatin (Zocor) 10 mg PO HS [facility] Last Admin: 07/29/18 20:34 Dose: 10 mg Documented by: Sodium Chloride (Saline Flush) 10 ml IV Q8 [facility] Last Admin: 07/30/18 05:59 Dose: 10 ml Documented by: Medical - PN: A/P - Time Spent With Patient Total time spent is greater than 50% in coordination of care (as documented) at patient's floor/unit and/or counseling patient: - Narrative A/P Narrative: A: *Severe Sepsis: -Lactic acidosis (Improving), elevated procalcitonin, bandemia (now resolved) *Cholangitis: s/p ERCP with removal of 3 stones and sphincterotomy (07/29) *Bacteremia (GNB): 2/2 above *Transaminitis/hyperbili: 2/2 above *Pulmonary asbestosis: *History of peripheral edema on Lasix: P: -IVF -Zosyn, pending BC -Follow-up lactic acid -GI following -trend PCT -monitor electrolytes -Hold home Lasix, may start tomorrow -ppx: Lovenox No Code Medical - PN: Qual - Stroke Symptom Onset Unknown: No - VTE Deep Vein Thrombosis/Pulmonary Embolism Present on Admission: No
[2018-07-30] MEDS ORDERED: predniSONE 20 MG TABLET PO SCH (08:00)
[2018-07-30] MEDS: FAMOTIDINE 20 MG TABLET PO SCH ×2 (08:57→20:46)
[2018-07-30] MEDS: POTASSIUM CHLORIDE 20 MEQ TABLET PO SCH ×2 (08:57→18:49)
[2018-07-30] MEDS: DOCUSATE SODIUM 100 MG CAPSULE PO SCH ×2 (08:58→20:46)
[2018-07-30] MEDS: ENOXAPARIN 40 MG/0.4 ML SYRINGE SQ SCH (08:58)
[2018-07-30] MEDS ORDERED: AZITHROMYCIN 500 MG in DEXTROSE 5% IN WATER 250 ML IV SCH (09:00)
--- NOTE | 2018-07-30 10:08 | Internal Med Progress Note ---
Medical - PN: Subj Patient information: Note initiated : 07/30/18 at 10:06 am Service Date, if different from initiated Date: [] Patient: Lan Duncan 88 y/o M admitted on 07/29/18 for shaking. Chief Complaint: [] cholangitis;rigors Interval history: Elderly pt presented with rigors yesterday, just like in 11/2017 when he had Klebsiella pn that grew out in blood cultures. No source of sepsis identified last summer. With suspicion for ascending cholangitis I took pt to ERCP yesterday and found CBD stones which were then extracted via sphincterotomy. Today the pt says he feels well; no rigors, no abd pain, no vomiting - Constitutional Vitals: Vital Signs Temp Pulse Resp BP Pulse Ox 98.0 F 55 L 24 H 104/64 95 07/30/18 07:02 07/30/18 04:00 07/30/18 07:02 07/30/18 07:02 07/30/18 07:02 Period Temp Pulse Resp BP Sys/[place] Pulse Ox Last 24 Hr 98.0 F-99.9 F 45-103 15-43 88-161/53-140 93-100 Intake and Output 07/29/18 07/30/18 07/30/18 21:59 05:59 13:59 Intake Total 1100 50 720 Output Total 950 Balance 1100 -900 720 Weight 231 lb Intake & Output: Intake & Output 07/29/18 07/30/18 07/30/18 21:59 05:59 13:59 Intake Total 1100 50 720 Output Total 950 Balance 1100 -900 720 Weight 231 lb Intake: IV 1100 50 Sodium Chloride 0.9% 1,000 ml @ 1000 150 mls/hr IV .Q6H40M [facility] Rx#: [id number] Zosyn 3.375 gm In Dextrose 5% 100 50 in Water 50 ml @ 100 mls/hr IV Q6H [facility] Rx#:[id number] Oral 0 720 Output: Void Amount 950 Other: Stool Size Moderate Stool Consistency Liquid # Voids 1 1 # Bowel Movements 1 1 General appearance: cooperative, no acute distress - Eye Eye exam: Present: scleral icterus - GI/Abdominal GI/Abdominal exam: Present: soft. Absent: distended, tenderness Medical - PN: Obj Da - Labs CBC & Chem 7: 07/30/18 03:19 07/30/18 03:19 Labs: Abnormal Lab Results 07/30/18 07/30/18 07/30/18 03:19 03:19 03:19 WBC 17.2 H RBC 3.47 L Hgb 11.3 L Hct 34.1 L MPV Gran % Lymph % (Auto) [place] % (Auto) Lymph # (Auto) [place] # (Auto) Seg Neutrophils % 79 H Band Neutrophils % Lymphocytes % 13 L D-Dimer VBG Lactic Acid 2.6 H Glucose 119 H Calcium 7.8 L Total Bilirubin 4.2 H Direct Bilirubin 3.2 H GGT 95 H AST 300 H ALT 311 H Alkaline Phosphatase Lactate Dehydrogenase 254 H Total Protein 5.5 L Albumin 3.0 L Lipase Urine Glucose (UA) Urine Urobilinogen 07/29/18 07/29/18 07/29/18 21:31 15:36 12:10 WBC RBC Hgb Hct MPV Gran % Lymph % (Auto) [place] % (Auto) Lymph # (Auto) [place] # (Auto) Seg Neutrophils % Band Neutrophils % Lymphocytes % D-Dimer VBG Lactic Acid 3.3 H 3.3 H Glucose Calcium Total Bilirubin Direct Bilirubin GGT AST ALT Alkaline Phosphatase Lactate Dehydrogenase Total Protein Albumin Lipase Urine Glucose (UA) 150 A Urine Urobilinogen 2.0 A 07/29/18 07/29/18 07/29/18 09:25 09:25 09:17 WBC RBC Hgb Hct MPV Gran % Lymph % (Auto) [place] % (Auto) Lymph # (Auto) [place] # (Auto) Seg Neutrophils % 80 H Band Neutrophils % 11 H Lymphocytes % 9 L D-Dimer 8.62 H VBG Lactic Acid Glucose Calcium Total Bilirubin Direct Bilirubin GGT AST ALT Alkaline Phosphatase Lactate Dehydrogenase Total Protein Albumin Lipase 112 H Urine Glucose (UA) Urine Urobilinogen 07/29/18 07/29/18 07/29/18 09:17 09:17 09:16 WBC RBC 4.20 L Hgb Hct 40.8 L MPV 6.8 L Gran % 94.3 H Lymph % (Auto) 5.2 L [place] % (Auto) 0.4 L Lymph # (Auto) 0.3 L [place] # (Auto) 0 L Seg Neutrophils % Band Neutrophils % Lymphocytes % D-Dimer VBG Lactic Acid 4.2 H* Glucose 131 H Calcium 8.3 L Total Bilirubin 2.4 H Direct Bilirubin GGT AST 358 H ALT 188 H Alkaline Phosphatase 122 H Lactate Dehydrogenase Total Protein Albumin Lipase Urine Glucose (UA) Urine Urobilinogen Meds: Medications Acetaminophen (Tylenol) 650 mg PO Q6HP PRN PRN Reason: PAIN/FEVER > 101 Albuterol/Ipratropium (Duoneb) 3 ml NEB Q4HP PRN PRN Reason: Shortness Of Breath Docusate Sodium (Colace) 100 mg PO BID [facility] Last Admin: 07/30/18 08:58 Dose: 100 mg Documented by: Enoxaparin Sodium (Lovenox) 40 mg SQ DAILY [facility] Last Admin: 07/30/18 08:58 Dose: 40 mg Documented by: Famotidine (Pepcid) 20 mg PO BID [facility] Last Admin: 07/30/18 08:57 Dose: 20 mg Documented by: Furosemide (Lasix) 20 mg PO BID [facility] Potassium Chloride 40 meq/ (Dextrose) 520 mls @ 130 mls/hr IV UD PRN PRN Reason: Potassium < 3 Magnesium Sulfate (Magnesium Sulfate) 2 gm in 50 mls @ 50 mls/hr IV UD PRN PRN Reason: Magnesium </= 1.6 Piperacillin Sod/Tazobactam (Sod 3.375 gm/ Dextrose) 50 mls @ 100 mls/hr IV Q6H [facility]; Protocol Last Admin: 07/30/18 05:59 Dose: 100 mls/hr Documented by: Lactulose (Cephulac) 10 gm PO DAILYP PRN PRN Reason: Constipation Ondansetron HCl (Zofran) 4 mg IV Q4HP PRN PRN Reason: Nausea And Vomiting Polyethylene Glycol (Miralax) 17 gm PO DAILYP PRN PRN Reason: Constipation Potassium Chloride (Kdur) 40 meq PO UD PRN PRN Reason: Potssium is 3-3.5 Potassium Chloride (Kdur) 40 meq PO UD PRN PRN Reason: Potassium < 3 [facility] Admin: 07/30/18 08:57 Dose: 20 meq Documented by: Prednisone (Prednisone) [facility] Stop: 08/02/18 08:01 Last Admin: 07/30/18 08:58 Dose: 40 mg Documented by: Promethazine HCl (Phenergan) 0 mg PO Q6HP PRN PRN Reason: Nausea And Vomiting Senna (Senokot) 2 tab PO HSP PRN PRN Reason: Constipation Simvastatin (Zocor) 10 mg PO HS [facility] Last Admin: 07/29/18 20:34 Dose: 10 mg Documented by: Sodium Chloride (Saline Flush) 10 ml IV Q8 [facility] Last Admin: 07/30/18 05:59 Dose: 10 ml Documented by: Medical - PN: A/P - Time Spent With Patient Total time spent is greater than 50% in coordination of care (as documented) at patient's floor/unit and/or counseling patient: (1) Ascending cholangitis Status: Acute Current Visit: Yes - Narrative A/P Narrative: blood cultures from admission are growing but organism not yet identified. Suspect it will be Klebsiella again. Even though his LFT's are increased since yesterday I anticipate that they will tend to normalize after the ercp with clearance of CBD. IV antibiotics to continue in view of the emerging positive blood cultures, and await sensitivity data. Pt tolerating solid food today. Medical - PN: Qual - Stroke Symptom Onset Unknown: No - VTE Deep Vein Thrombosis/Pulmonary Embolism Present on Admission: No
[2018-07-30] MEDS ORDERED: POLYETHYLENE GLYCOL 3350 17 GM PACKET PO PRN (16:28)
[2018-07-30] MEDS ORDERED: PROMETHAZINE 25 MG TABLET PO PRN (16:28)
[2018-07-30] MEDS ORDERED: IPRATROPIUM/ALBUTEROL 3 ML AMPUL.NEB NEB PRN (16:28)
[2018-07-30] MEDS ORDERED: ONDANSETRON 4 MG/2 ML VIAL IV PRN (16:28)
[2018-07-30] MEDS ORDERED: ACETAMINOPHEN 325 MG TABLET PO PRN (16:28)
[2018-07-30] MEDS ORDERED: LACTULOSE 20 GM/30 ML ORAL.SOL PO PRN (16:28)
[2018-07-30] MEDS ORDERED: POTASSIUM CHLORIDE 40 MEQ in DEXTROSE 5% IN WATER 500 ML IV PRN (16:28)
[2018-07-30] MEDS ORDERED: MAGNESIUM SULFATE 2 GM/50 ML BAG IV PRN (16:28)
[2018-07-30] MEDS ORDERED: POTASSIUM CHLORIDE 20 MEQ TABLET PO PRN ×2 (16:28)
[2018-07-30] MEDS ORDERED: SENNOSIDES 1 TABLET PO PRN (16:28)
[2018-07-30] MEDS: SIMVASTATIN 10 MG TABLET PO SCH (20:45)
[2018-07-31] MEDS: 0.9 % SODIUM CHLORIDE 10 ML SYRINGE IV SCH ×4 (05:31→22:00)
[2018-07-31] MEDS: PIPERACILLIN SODIUM/TAZOBACTAM 3.375 GM in DEXTROSE 5% IN WATER 50 ML IV SCH ×3 (05:34→17:26)
[2018-07-31 05:50] LABS: Mean Cell Volume 98.1 fL (80.0-100.0); Mean Corpuscular HGB Conc 33.3 g/dL (31.0-36.0); Platelet Count 158 K/mcL (140-440); RBC 3.55 M/mcL (4.50-5.90); Red Cell Distribution Width 14.3 % (11.5-14.5)
[2018-07-31 06:07] LABS: ALT/SGPT 253 U/l (0-40); Albumin/Globulin Ratio 1.1 (1.0-2.3); Alkaline Phosphatase 99 U/L (39-117); Bilirubin,Direct 0.5 mg/dL (0.0-0.3); Blood Urea Nitrogen 15 mg/dl (8-23); Gamma Glutamyl Transpeptidase 83 U/L (8-61); Uric Acid 3.2 mg/dL (2.5-8.0)
[2018-07-31 06:40] LABS: Band Neutrophils % 6 % (0-10); Lymphocytes % 8 % (15-49); Monocytes % (Manual) 4 % (1-12); Platelet Estimate NORMAL (NORMAL); RBC Morphology NORMAL (NORMAL); Segmented Neutrophils % 82 % (38-78)
--- NOTE | 2018-07-31 06:48 | Internal Med Progress Note ---
Medical - PN: Subj Patient information: Note initiated : 07/31/18 at 6:44 am Service Date, if different from initiated Date: [] Patient: Lan Duncan 88 y/o M admitted on 07/29/18 for shaking. Chief Complaint: [] Interval history: Mr. Duncan is a 88 year old M Who went to bed feeling fine. However this morning he was going through his morning routine suddenly felt very chilled and shaky. [place] unusually ill p eriods similar to when he had the sepsis and hospitalization in the recent past. He denies any increased cough or shortness of breath. Chest x-ray done in the ED difficult to interpret because of underlying asbestosis. T-max was 99.9. But he was tachypneic and tachycardic. Pro-calcitonin was elevated. Denies any abdominal pain just pain no diarrhea constipation. No headaches. No pains any particular region. His lactate was elevated in the ED. Concern for ED standpoint was pneumonia and sepsis. He had mildly elevated bilirubin and abdominal ultrasound was done which showed no biliary dilation. 07/30 Taken last night for ERCP by Dr. Doe and found to have 3 common bile duct stones, also had sphincterotomy. This morning feeling fine. Denies any complaints no abdominal pain fevers chills. 07/31 Feeling well. No overnight events. Family at bedside. No abdominal pain. Review of Systems: denies headache/fever/chills/nausea/vomiting/chest or abdominal pain/cough/dyspnea/diarrhea. Otherwise see above. - Constitutional Vitals: Vital Signs Temp Pulse Resp BP Pulse Ox 98.2 F 68 18 124/78 95 07/31/18 04:00 07/31/18 04:00 07/31/18 04:00 07/31/18 00:00 07/31/18 04:00 Period Temp Pulse Resp BP Sys/[place] Pulse Ox Last 24 Hr 97.7 F-98.8 F 55-77 16-24 104-134/64-78 94-96 Intake and Output 07/30/18 07/31/18 07/31/18 21:59 05:59 13:59 Intake Total 180 50 Balance 180 50 Weight 105.778 kg Intake & Output: Intake & Output 07/30/18 07/31/18 07/31/18 21:59 05:59 13:59 Intake Total 180 50 Balance 180 50 Weight 105.778 kg Intake: IV 50 Zosyn 3.375 gm In Dextrose 5% 50 in Water 50 ml @ 100 mls/hr IV Q6H [facility] Rx#:[id number] Oral 180 Other: # Voids 2 1 1 # Bowel Movements 1 Exam: General: Alert, Awake, No acute Distress Eyes/N/T: EOMI, Head/Neck: neck supple, CV: RRR, No murmurs, Pulm: No rhonchi rales, no wheezing Abd: soft, nontender, +BS x4 Ext: no clubbing/cyanosis, 1+ b/l LE edema Neuro: Alert, no focal deficits, moves all extremities, Skin: warm/dry Medical - PN: Obj Da - Labs CBC & Chem 7: 07/31/18 03:04 07/31/18 03:04 Labs: Abnormal Lab Results 07/31/18 07/31/18 07/30/18 03:04 03:04 03:19 WBC 13.1 H RBC 3.55 L Hgb 11.6 L Hct 34.8 L MPV Gran % Lymph % (Auto) [place] % (Auto) Lymph # (Auto) [place] # (Auto) Seg Neutrophils % 82 H Band Neutrophils % Lymphocytes % 8 L D-Dimer VBG Lactic Acid 2.6 H Glucose Calcium 7.9 L Phosphorus 2.2 L Total Bilirubin 1.1 H Direct Bilirubin 0.5 H GGT 83 H AST 131 H ALT 253 H Alkaline Phosphatase Lactate Dehydrogenase Total Protein 5.8 L Albumin 3.0 L Lipase Urine Glucose (UA) Urine Urobilinogen 07/30/18 07/30/18 07/29/18 03:19 03:19 21:31 WBC 17.2 H RBC 3.47 L Hgb 11.3 L Hct 34.1 L MPV Gran % Lymph % (Auto) [place] % (Auto) Lymph # (Auto) [place] # (Auto) Seg Neutrophils % 79 H Band Neutrophils % Lymphocytes % 13 L D-Dimer VBG Lactic Acid 3.3 H Glucose 119 H Calcium 7.8 L Phosphorus Total Bilirubin 4.2 H Direct Bilirubin 3.2 H GGT 95 H AST 300 H ALT 311 H Alkaline Phosphatase Lactate Dehydrogenase 254 H Total Protein 5.5 L Albumin 3.0 L Lipase Urine Glucose (UA) Urine Urobilinogen 07/29/18 07/29/18 07/29/18 15:36 12:10 09:25 WBC RBC Hgb Hct MPV Gran % Lymph % (Auto) [place] % (Auto) Lymph # (Auto) [place] # (Auto) Seg Neutrophils % 80 H Band Neutrophils % 11 H Lymphocytes % 9 L D-Dimer VBG Lactic Acid 3.3 H Glucose Calcium Phosphorus Total Bilirubin Direct Bilirubin GGT AST ALT Alkaline Phosphatase Lactate Dehydrogenase Total Protein Albumin Lipase Urine Glucose (UA) 150 A Urine Urobilinogen 2.0 A 07/29/18 07/29/18 07/29/18 09:25 09:17 09:17 WBC RBC Hgb Hct MPV Gran % Lymph % (Auto) [place] % (Auto) Lymph # (Auto) [place] # (Auto) Seg Neutrophils % Band Neutrophils % Lymphocytes % D-Dimer 8.62 H VBG Lactic Acid 4.2 H* Glucose Calcium Phosphorus Total Bilirubin Direct Bilirubin GGT AST ALT Alkaline Phosphatase Lactate Dehydrogenase Total Protein Albumin Lipase 112 H Urine Glucose (UA) Urine Urobilinogen 07/29/18 07/29/18 09:17 09:16 WBC RBC 4.20 L Hgb Hct 40.8 L MPV 6.8 L Gran % 94.3 H Lymph % (Auto) 5.2 L [place] % (Auto) 0.4 L Lymph # (Auto) 0.3 L [place] # (Auto) 0 L Seg Neutrophils % Band Neutrophils % Lymphocytes % D-Dimer VBG Lactic Acid Glucose 131 H Calcium 8.3 L Phosphorus Total Bilirubin 2.4 H Direct Bilirubin GGT AST 358 H ALT 188 H Alkaline Phosphatase 122 H Lactate Dehydrogenase Total Protein Albumin Lipase Urine Glucose (UA) Urine Urobilinogen Meds: Medications Acetaminophen (Tylenol) 650 mg PO Q6HP PRN PRN Reason: PAIN/FEVER > 101 Albuterol/Ipratropium (Duoneb) 3 ml NEB Q4HP PRN PRN Reason: Shortness Of Breath Docusate Sodium (Colace) 100 mg PO BID [facility] Last Admin: 07/30/18 20:46 Dose: 100 mg Documented by: Enoxaparin Sodium (Lovenox) 40 mg SQ DAILY [facility] Famotidine (Pepcid) 20 mg PO BID [facility] Last Admin: 07/30/18 20:46 Dose: 20 mg Documented by: Furosemide (Lasix) 20 mg PO BID [facility] Potassium Chloride 40 meq/ (Dextrose) 520 mls @ 130 mls/hr IV UD PRN PRN Reason: Potassium < 3 Magnesium Sulfate (Magnesium Sulfate) 2 gm in 50 mls @ 50 mls/hr IV UD PRN PRN Reason: Magnesium </= 1.6 Piperacillin Sod/Tazobactam (Sod 3.375 gm/ Dextrose) 50 mls @ 100 mls/hr IV Q6H [facility]; Protocol Last Admin: 07/31/18 05:34 Dose: 100 mls/hr Documented by: Lactulose (Cephulac) 10 gm PO DAILYP PRN PRN Reason: Constipation Ondansetron HCl (Zofran) 4 mg IV Q4HP PRN PRN Reason: Nausea And Vomiting Polyethylene Glycol (Miralax) 17 gm PO DAILYP PRN PRN Reason: Constipation Potassium Chloride (Kdur) 40 meq PO UD PRN PRN Reason: Potssium is 3-3.5 Potassium Chloride (Kdur) 40 meq PO UD PRN PRN Reason: Potassium < 3 Potassium Chloride (Kdur) 20 meq PO BIDCC [facility] Last Admin: 07/30/18 18:49 Dose: 20 meq Documented by: Pred[facility]one) [facility] Stop: 08/02/18 08:01 Promethazine HCl (Phenergan) 0 mg PO Q6HP PRN PRN Reason: Nausea And Vomiting Senna (Senokot) 2 tab PO HSP PRN PRN Reason: Constipation Simvastatin (Zocor) 10 mg PO [facility] Last Admin: 07/30/18 20:45 Dose: 10 mg Documented by: Sodium Chloride (Saline Flush) 10 ml IV Q8 [facility] Last Admin: 07/31/18 05:31 Dose: 10 ml Documented by: Medical - PN: A/P - Time Spent With Patient Total time spent is greater than 50% in coordination of care (as documented) at patient's floor/unit and/or counseling patient: - Narrative A/P Narrative: A: *Severe Sepsis: resolved -Lactic acidosis (Improved), leukocytosis and PCT now improving *Cholangitis: s/p ERCP with removal of 3 stones and sphincterotomy (07/29) *Bacteremia (Klebsiella): 2/2 above *Transaminitis/hyperbili: 2/2 above -enzymes improving *Pulmonary asbestosis: *History of peripheral edema on Lasix: P: -IVF d/c -Zosyn, pending final BC -GI following -trend PCT -monitor electrolytes -restart home lasix -ppx: Lovenox No Code Medical - PN: Qual - Stroke Symptom Onset Unknown: No - VTE Deep Vein Thrombosis/Pulmonary Embolism Present on Admission: No
[2018-07-31] MEDS: predniSONE 20 MG TABLET PO SCH (07:28)
[2018-07-31] MEDS: POTASSIUM CHLORIDE 20 MEQ TABLET PO SCH ×2 (07:28→17:26)
[2018-07-31] MEDS: FUROSEMIDE 20 MG TABLET PO SCH ×2 (08:00→19:36)
[2018-07-31] MEDS: FAMOTIDINE 20 MG TABLET PO SCH ×2 (08:00→19:36)
[2018-07-31] MEDS: DOCUSATE SODIUM 100 MG CAPSULE PO SCH ×2 (08:00→19:36)
[2018-07-31] MEDS: ENOXAPARIN 40 MG/0.4 ML SYRINGE SQ SCH (08:01)
[2018-07-31] MEDS ORDERED: FUROSEMIDE 20 MG TABLET PO SCH (09:00)
--- NOTE | 2018-07-31 09:38 | Operative Note ---
DATE OF OPERATION: 07/29/2018 PROCEDURE: ERCP with sphincterotomy and balloon dilatation of the biliary tract and with stone extraction by balloon catheter. [employer]ER: Lan Birch M.D. ANESTHETIC USED: Propofol 300 mg IV, Versed 2 mg IV, glucagon 1 mg IV. Patient received Zosyn on admission today. PREOPERATIVE DIAGNOSIS: I was suspicious of biliary cholangitis in this patient who presented to the ER today. In reviewing his record, I see that back in 11/2017 he had presented to the emergency room and was admitted with rigors, and at that time his liver chemistries were elevated. He had no abdominal pain at that time. He was treated during that admission and grew out Klebsiella pneumoniae in his blood, but the source of the Klebsiella pneumoniae was never identified. No GI consultation was obtained during that admission. I believe he had undergone a CAT scan during that admission which did not show an intraabdominal source of sepsis. He was discharged home, and in retrospect, there has been one other episode on 03/24/2018 when the patient and his son remember that he had another episode of severe rigors just like in November. I believe he presented to the emergency room at that time, and I am not sure if he was admitted or not, but the cause of the rigors was not determined. The patient has been well until earlier this morning when he ate breakfast, feeling fine, and then abruptly developed malaise, and again developed severe rigors to the point that his hands shook so much that he could hardly dial his phone. His son brought him to the emergency room, and he is found to have once again markedly elevated liver chemistries. In April of this year his liver chemistries were normal. The liver chemistries are a little more elevated now than they were back in 11/2017. An ultrasound of the abdomen was done showing no stones in the gallbladder, but with gallbladder wall 3.8 mm thick. There was no ductal dilatation of the common bile duct. No abdominal pain. I heard about this case secondhand and inquired with the hospitalist, and in talking with Dr. Gutierrez I decided to proceed to an ERCP directly. I would have preferred an MRCP to see if there were common bile duct stones but MRCP tech is not available today. POSTOPERATIVE DIAGNOSIS: At ERCP today, multiple common bile duct stones removed via sphincterotomy. DESCRIPTION OF PROCEDURE: Prior to the procedure, the patient provided his own informed consent. The patient was evaluated and considered medically fit for endoscopy. With the patient in the semi-prone position under a fluoroscope, a side-viewing duodenoscope was advanced via the mouth to the esophagus under direct vision. The scope was then advanced without difficulty to the second portion of the duodenum where a normal-appearing ampulla was identified. Selective cannulation of the common bile duct was immediately achieved without any ventures into the pancreatic duct. Cholangiogram was obtained demonstrating a perhaps mildly dilated bile duct. In the distal duct three filling defects are identified consistent with common bile duct stones. I performed a [id number] sphincterotomy. I then dilated the sphincterotomy tract in the distal common bile duct using an 8 mm diameter balloon. I then used a 9-12 mm balloon extracting catheter inflated to 12 mm diameter to sweep the bile duct. In doing this, three stones were removed on the first sweep. I swept two more times throughout the length of the entire bile duct through the sphincterotomy without difficulty and no more significant stones were seen. COMPLICATIONS: None immediate. RECOMMENDATIONS AND FOLLOWUP: Continue to treat for probable biliary cholangitis. Hopefully, the patient will only need 1 or 2 days in the hospital before being discharged home to complete a course of oral antibiotics. I would hold aspirin for 1 week following the sphincterotomy. JCM:aldo Job ID: [id number] Doc ID: [id number] Lan Genao MD
--- NOTE | 2018-07-31 11:01 | Discharge Summary ---
Medical - DS: Prov Patient information: Note initiated : 07/31/18 at 10:53 am Service Date, if different from initiated Date: [] Patient: Lan Duncan 88 y/o M admitted on 07/29/18 for shaking. Chief Complaint: [] Date of admission: 07/29/18 14:47 Discharge date: 08/01/18 Primary care physician: Loli Genao Consults: 07/29/18 Consult to Physician [CONS] Stat Comment: Consulting Provider: Gabino Gutierrez Reason For Exam: Physician to Consult 07/29/18 10:11 Consult to Physician [CONS] Stat Comment: Consulting Provider: Pablo Simpson Reason For Exam: Physician to Consult 07/30/18 09:35 Consult to Physician [CONS] Routine Comment: Consulting Provider: Lan Birch Reason For Exam: Physician to Consult Medical - DS: Meds - Discharge Medications Prescriptions: Ciprofloxacin HCl [Cipro] 500 mg PO BID #10 tab Active and Home Medications: Home Medications Aspirin [Lite Coat Aspirin] 325 mg PO DAILY 12/04/17 [History Confirmed 07/29/18 Last Taken 07/29/18] Cyanocobalamin (Vitamin B-12) [Vitamin B12] 2,500 mcg PO DAILY 12/04/17 [History Confirmed 07/29/18 Last Taken 07/29/18] Furosemide [Lasix] 20 mg PO BID 12/04/17 [History Confirmed 07/29/18 Last Taken 07/29/18] Lovastatin [Mevacor] 20 mg PO HS 12/04/17 [History Confirmed 07/29/18 Last Taken 07/28/18] Potassium Chloride [Kdur] 20 meq PO BIDCC 12/04/17 [History Confirmed 07/29/18 Last Taken 07/29/18] Vitamin E 1,000 unit PO DAILY 12/04/17 [History Confirmed 07/29/18 Last Taken 07/29/18] Multivit-Min/Iron/Folic Acid/K [Adults Multivitamin Tablet] 1 tab PO DAILY 07/29/18 [History Confirmed 07/29/18 Last Taken 07/29/18] Home Medications Aspirin [Lite Coat Aspirin] 325 mg PO DAILY 12/04/17 [History Confirmed 07/29/18 Last Taken 07/29/18] Cyanocobalamin (Vitamin B-12) [Vitamin B12] 2,500 mcg PO DAILY 12/04/17 [History Confirmed 07/29/18 Last Taken 07/29/18] Furosemide [Lasix] 20 mg PO BID 12/04/17 [History Confirmed 07/29/18 Last Taken 07/29/18] Lovastatin [Mevacor] 20 mg PO HS 12/04/17 [History Confirmed 07/29/18 Last Taken 07/28/18] Potassium Chloride [Kdur] 20 meq PO BIDCC 12/04/17 [History Confirmed 07/29/18 Last Taken 07/29/18] Vitamin E 1,000 unit PO DAILY 12/04/17 [History Confirmed 07/29/18 Last Taken 07/29/18] Multivit-Min/Iron/Folic Acid/K [Adults Multivitamin Tablet] 1 tab PO DAILY 07/29/18 [History Confirmed 07/29/18 Last Taken 07/29/18] Ciprofloxacin HCl [Cipro] 500 mg PO BID #10 tab 07/31/18 [Rx Last Taken Unknown] Medical - DS: Hosp Hospital course: Mr. Duncan is a 88 year old M Mr. Duncan is a 88 year old M Who went to bed feeling fine. However this morning he was going through his morning routine suddenly felt very chilled and shaky. [place] unusually ill periods similar to when he had the sepsis and hospitalization in the recent past. He denies any increased cough or shortness of breath. Chest x-ray done in the ED difficult to interpret because of underlying asbestosis. T-max was 99.9. But he was tachypneic and tachycardic. Pro-calcitonin was elevated. Denies any abdominal pain just pain no diarrhea constipation. No headaches. No pains any particular region. His lactate was elevated in the ED. Concern for ED standpoint was pneumonia and sepsis. He had mildly elevated bilirubin and abdominal ultrasound was done which showed no biliary dilation. 07/30 Taken last night for ERCP by Dr. Doe and found to have 3 common bile duct stones, also had sphincterotomy. This morning feeling fine. Denies any complaints no abdominal pain fevers chills. 07/31 Feeling well. No overnight events. Family at bedside. No abdominal pain. 08/01 Doing well. Stable for discharge. Discharge diagnosis: Ascending cholangitis sepsis Klebsiella bacteremia Secondary discharge diagnosis: Pulmonary asbestosis - Time Spent with Patient Total time spent providing and/or coordinating discharge services: Greater than 30 minutes Medical - DS: Exam - Constitutional Vitals: Vital Signs Temp Pulse Resp BP BP Pulse Ox 07/31/18 07:10 97.2 F 57 L 18 138/74 97 07/31/18 04:00 98.2 F 68 18 95 07/31/18 00:00 98.7 F 77 18 124/78 94 07/30/18 20:00 98.8 F 65 18 130/68 95 07/30/18 19:53 94 07/30/18 16:00 97.7 F 16 126/76 96 07/30/18 12:00 97.7 F 18 134/78 95 Intake and Output 07/30/18 07/31/18 07/31/18 21:59 05:59 13:59 Intake Total 180 50 650 Balance 180 50 650 Intake: IV 50 50 Zosyn 3.375 gm In Dextrose 5% 50 50 in Water 50 ml @ 100 mls/hr IV Q6H [facility] Rx#:[id number] Oral 180 600 Other: Meal Breakfast Percent of Meal Consumed 100% Feeding Ability Independent # Voids 2 1 1 # Bowel Movements 1 Weight 105.778 kg Medical - DS: Data Labs on day of discharge: Labs from last 24 hours 07/31/18 07/31/18 07/31/18 03:04 03:04 03:04 WBC 13.1 H RBC 3.55 L Hgb 11.6 L Hct 34.8 L MCV 98.1 MCH 32.7 MCHC 33.3 RDW 14.3 Plt Count 158 MPV 7.6 Total Counted 100 Seg Neutrophils % 82 H Band Neutrophils % 6 Lymphocytes % 8 L Monocytes % (Manual) 4 Platelet Estimate Normal RBC Morphology Normal Sodium 138 Potassium 4.1 Chloride 105 Carbon Dioxide 23 Anion Gap 10.0 BUN 15 Creatinine 1.2 GFR Calculation 54 Glucose 98 Uric Acid 3.2 Calcium 7.9 L Phosphorus 2.2 L Magnesium 2.3 Total Bilirubin 1.1 H Direct Bilirubin 0.5 H GGT 83 H AST 131 H ALT 253 H Alkaline Phosphatase 99 Lactate Dehydrogenase 150 Total Protein 5.8 L Albumin 3.0 L Globulin 2.8 Albumin/Globulin Ratio 1.1 Triglycerides 98 Procalcitonin 42.43 Preliminary micro results at discharge 07/29/18 09:13 Blood Culture - Preliminary Blood Klebsiella pneumoniae 07/29/18 09:25 Blood Culture - Preliminary Blood Gram negative bacillus Medical - DS: A/P - Patient/Caregiver Discharge Instructions Activity: increase activity as tolerated Diet: Regular Diet Prescriptions: Ciprofloxacin HCl [Cipro] 500 mg PO BID #10 tab - Follow up Plan Follow up with: Loli Genao MD [Primary Care Provider] - 08/07/18 11:00 am Lan Birch MD [Physician] - (Dr. Hughes office will contact you if a follow up appointment is needed.) Disposition: Home, Self-Care Prognosis: Fair Rehab Potential: Fair Overall status at discharge: patient is back to baseline Medical - DS: Qual - VTE Deep Vein Thrombosis/Pulmonary Embolism Present on Admission: No
[2018-07-31] MEDS ORDERED: TEMAZEPAM 15 MG CAPSULE PO PRN (14:56)
[2018-07-31] MEDS: SIMVASTATIN 10 MG TABLET PO SCH (19:36)
[2018-08-01] MEDS: PIPERACILLIN SODIUM/TAZOBACTAM 3.375 GM in DEXTROSE 5% IN WATER 50 ML IV SCH ×2 (00:04→05:13)
[2018-08-01] MEDS: 0.9 % SODIUM CHLORIDE 10 ML SYRINGE IV SCH (05:13)
[2018-08-01 05:39] LABS: Basophils # (Auto) 0 K/mcL (0.0-0.3); Basophils % (Auto) 0.2 % (0.0-2.0); Eosinophils # (Auto) 0 K/mcL (0.0-0.7); Eosinophils % (Auto) 0.3 % (0.0-7.0); Granulocytes % (Auto) 79.5 % (38.0-78.0); Lymphocytes # (Auto) 1.4 K/mcL (1.5-4.8); Mean Cell Volume 98.1 fL (80.0-100.0); Mean Corpuscular HGB Conc 33.1 g/dL (31.0-36.0); Monocytes # (Auto) 0.6 K/mcL (0.1-0.9); Platelet Count 165 K/mcL (140-440); RBC 3.72 M/mcL (4.50-5.90); Red Cell Distribution Width 14.1 % (11.5-14.5)
[2018-08-01 06:10] LABS: ALT/SGPT 177 U/l (0-40); Albumin 3.1 gm/dL (3.2-5.2); Alkaline Phosphatase 100 U/L (39-117); Bilirubin,Direct 0.3 mg/dL (0.0-0.3); Blood Urea Nitrogen 15 mg/dl (8-23); Gamma Glutamyl Transpeptidase 88 U/L (8-61); Uric Acid 3.4 mg/dL (2.5-8.0)
[2018-08-01] MEDS: predniSONE 20 MG TABLET PO SCH (07:26)
[2018-08-01] MEDS: POTASSIUM CHLORIDE 20 MEQ TABLET PO SCH (07:26)
[2018-08-01] MEDS: ENOXAPARIN 40 MG/0.4 ML SYRINGE SQ SCH (08:28)
[2018-08-01] MEDS: FUROSEMIDE 20 MG TABLET PO SCH (08:28)
[2018-08-01] MEDS: FAMOTIDINE 20 MG TABLET PO SCH (08:29)
[2018-08-01] MEDS: DOCUSATE SODIUM 100 MG CAPSULE PO SCH (08:29)
== END 2018-08-01 12:05 | disposition home or self-care (01) | DRG 444 ==
LOC: ED 08:14 → ICU 14:47
PROVIDERS: ADMIT Internal Medicine; ATTEND Internal Medicine
PROC: [UNRECOGNIZED PROCEDURE] (2018-07-29 15:45)
PROC: ERCPSTO (2018-07-29 15:45)
PROC: ERCPPAP (ICD-10-PCS; 2018-07-29 15:45)